=== PATIENT | female | born 1980 | race Caucasian/White ===

== ENCOUNTER 2021-02-26 10:31 | Emergency (ER) | payer OTHER, SELFPAY ==
--- NOTE | 2021-02-26 10:39 | ED.NECK ---
HPI - Neck Pain/Injury General Chief Complaint: Neck Pain/Injury Stated Complaint: neck pain Time Seen by Provider: 02/26/21 10:53 Source: patient and RN notes reviewed Mode of arrival: ambulatory Limitations: no limitations History of Present Illness HPI Narrative: 40-year-old female presents with concern for pain at the left-sided neck that starts at the base of the skull and radiates towards left shoulder. She reports some left arm achiness. She denies any injury or trauma. Reports she has been using heat with intermittent relief. Reports overall the pain has been worsening throughout the week. Reports a history of a similar incident like this several years ago however it did not last this long. Reports normal range of motion, pain with rotation to the left. Denies any weakness in any extremity or tingling in the digits. Denies rash, redness, bruising MD complaint: neck pain Related Data Home Medications Medication Instructions Recorded Confirmed Zyrtec 02/26/21 escitalopram oxalate mg 02/26/21 eszopiclone mg 02/26/21 montelukast mg 02/26/21 norethindrone-e.estradiol-iron tablet 02/26/21 [Aurovela Fe 1.5/30 (28)] Allergies Allergy/AdvReac Type Severity Reaction Status Date / Time shellfish derived Allergy Unknown Verified 08/15/16 11:58 Review of Systems Review of Systems: CONSTITUTIONAL: Denies malaise, chills, sweats, or fever. CARDIOVASCULAR: Denies chest pain, palpitations, or edema. RESPIRATORY: Denies cough or dyspnea. GASTROINTESTINAL: Denies abdominal pain, nausea, vomiting, diarrhea, bloody, or mucous stools. SKIN: Denies erythema, ecchymosis, rash or itching. MUSCULOSKELETAL: Reports left-sided neck pain that radiates to the left arm NEUROLOGIC: Denies numbness, weakness. Reports headache. All systems reviewed & are unremarkable except as noted in HPI and below [facility] Family History Family History (Updated 12/07/16 @ 10:28 by DOCTOR UNKNOWN) Father Asthma Family history of chronic obstructive pulmonary disease Mother Family history of cardiovascular disease Hypertension Social History Social History Smoking status: Never smoker Alcohol intake: never Comments At time of signature, agree with nursing past medical, surgical, social and family history. There is no relevant family history pertinent to the presenting complaint Exam Narrative: GENERAL: Well-appearing, well-nourished, and in no acute distress. HEAD: Normocephalic, atraumatic. EYES: PERRLA, sclera clear, and EOMI. No nystagmus. ENT: Mucous membranes moist. NECK: Supple. No lymphadenopathy. No cervical tenderness CHEST: No respiratory distress. Clear to auscultation. No bony deformities, no asymmetry. Speaks in full sentences. HEART: Regular rate and rhythm. No murmur heard. Normal peripheral pulses. EXTREMITIES: Bilateral upper extremities have grossly normal range of motion, no edema. Normal strength and sensation. SKIN: Warm, dry, no visible rash. NEURO: Alert and oriented x3. PSYCH: Normal mood and affect Course Course Emergency Course: Patient is aware of diagnosis, understands and agrees to treatment plan. Anticipatory guidance given. Patient agrees to follow-up as directed and is aware of reasons to seek care at the emergency department. Portions of this record may have been created with voice recognition software Vital Signs Vital signs: Reviewed. MDM - Neck Pain/Injury MDM Narrative Medical decision making narrative: Exam findings show no acute concerns or changes; patient is non-toxic appearing and is in no distress. Patient is appropriate for outpatient treatment and follow-up. Differential Diagnosis Differential diagnosis: Likely disc disorder of cervical region, cervical radiculopathy, torticollis, cervical spondylosis and strain of neck muscle Critical Care Time Critical Care Time Critical Care Time: No Discharge Plan Discharge Clinical Impression: Cervical radiculopathy
[2021-02-26 10:42] VITALS: BP 144/83; PULSE 102; RESP 16; TEMP 37.3; O2SAT 97
== END 2021-02-26 11:02 | disposition home or self-care (01) ==
PROVIDERS: Emergency Provider Nurse Practitioner; PCP Nurse Practitioner Family
DX: M54.12 Radiculopathy, cervical region (principal)
CPT/HCPCS: 99213; G0463

== ENCOUNTER → 2022-01-30 10:19 | Outpatient (CLI) | payer OTHER, SELFPAY ==
--- NOTE | ~2022-01-30 | MM_ITS ---
EXAMINATION: MM screening carol BI w braxton HISTORY: Screening mammogram TECHNIQUE: Craniocaudal and mediolateral oblique 3-D tomosynthesis images were obtained and synthetic 2-D images were generated. CAD analysis was submitted and interpreted. COMPARISON: No prior mammogram is available for comparison at this institution. BREAST PARENCHYMAL COMPOSITION: The breasts are extremely dense, which lowers the sensitivity of mamm ography. FINDINGS: There is no evidence of suspicious mass, calcification, or architectural distortion to sugg est malignancy in either breast. There has been no suspicious interval change. IMPRESSION: 1. No mammographic evidence of malignancy. 2. Recommend routine screening mammography in one year. BI-RADS Category 1: Negative Reviewed, dictated and finalized at location A.
== END ==
PROVIDERS: PCP Nurse Practitioner Family; Visit Provider Advanced Practice Midwife
DX: Z12.31 Encounter for screening mammogram for malignant neoplasm of breast (principal)
CPT/HCPCS: 77063; 77067

== ENCOUNTER → 2023-01-31 07:07 | Outpatient (CLI) | payer OTHER, SELFPAY ==
--- NOTE | ~2023-01-31 | MM_ITS ---
EXAMINATION: MM screening carol BI w braxton HISTORY: Screening mammogram TECHNIQUE: Craniocaudal and mediolateral oblique 3-D tomosynthesis images were obtained and synthetic 2-D images were generated. CAD analysis was submitted and interpreted. COMPARISON: 01/30/2022 bilateral screening mammogram BREAST PARENCHYMAL COMPOSITION: The breasts are extremely dense, which lowers the sensitivity of mamm ography. FINDINGS: There is no evidence of suspicious mass, calcification, or architectural distortion to sugg est malignancy in either breast. There has been no suspicious interval change. IMPRESSION: 1. No mammographic evidence of malignancy. 2. Recommend routine screening mammography in one year. BI-RADS Category 1: Negative Reviewed, dictated and finalized at location A.
== END ==
PROVIDERS: PCP Nurse Practitioner Family; Visit Provider Advanced Practice Midwife
DX: Z12.31 Encounter for screening mammogram for malignant neoplasm of breast (principal)
CPT/HCPCS: 77063; 77067

== ENCOUNTER 2024-01-31 07:21 | Outpatient (CLI) | payer OTHER, SELFPAY ==
--- NOTE | ~2024-01-31 | MM_ITS ---
EXAMINATION: MM screening carol BI w braxton HISTORY: Screening TECHNIQUE: Craniocaudal and mediolateral oblique 3-D tomosynthesis images were obtained and synthetic 2-D images were generated. CAD analysis was submitted and interpreted. COMPARISON: Comparison to multiple prior studies sequentially, with oldest reviewed study dated 01/30. BREAST PARENCHYMAL COMPOSITION: Dense: The breasts are extremely dense, which lowers the sensitivity of mammography. FINDINGS: There is no evidence of suspicious mass, calcification, or architectural distortion to sugg est malignancy in either breast. There has been no suspicious interval change. IMPRESSION: 1. No mammographic evidence of malignancy. 2. Recommend routine screening mammography in one year. BI-RADS Category 1: Negative Reviewed, dictated and finalized at location B.
== END 2024-01-31 07:22 | disposition home or self-care (01) ==
PROVIDERS: PCP Nurse Practitioner Family; Visit Provider Advanced Practice Midwife
DX: Z12.31 Encounter for screening mammogram for malignant neoplasm of breast (principal)
CPT/HCPCS: 77063; 77067

== ENCOUNTER 2024-08-24 21:27 | Emergency (ER) | payer OTHER, SELFPAY ==
--- NOTE | ~2024-08-24 | XR_ITS ---
Right ankle Technique: AP, oblique, and lateral views were obtained. Clinical History: Pain and swelling Findings: No acute fracture or dislocation is seen. Osseous alignment is anatomic. Ankle mortise and other visualized joint spaces are preserved. There is mild lateral soft tissue swelling. Impression: No fracture or dislocation. Mild lateral soft tissue swelling. Reviewed, dictated and finalized at [facility]. Impression: No fracture or dislocation. Mild lateral soft tissue swelling.
--- OUTSIDE RECORDS SUMMARY | 2024-08-24 21:30 | XMS_ITS | Referral Summary ---
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 Sleep Medicine at [address] [place] [address] Millie Flynn MD SARAH (obstructive sleep apnea) (Primary Dx); Hypersomnia; Obesity, unspecified class, unspecified obesity type, unspecified whether serious comorbidity present; Insomnia, unspecified type from Last 3 Months Allergies No known active allergies Medications escitalopram (LEXAPRO) 10 mg tablet Take 1 tablet (10 mg total) by mouth daily 11/19/2023 Active eszopiclone (LUNESTA) 3 mg tablet 3 MG ORALLY EVERY DAY AT BEDTIME 11/20/2023 Active topiramate (TOPAMAX) 25 mg tablet Take 1 tablet (25 mg total) by mouth 2 (two) times a day 11/19/2023 Active Ubrelvy 100 mg tablet 100 MG ORALLY ONCE A SINGLE DOSE MAY REPEAT ONCE IN >=2 HOURS AFTER FIRST DOSE IF NEEDED 11/20/2023 Active cetirizine (ZyrTEC) 5 mg tablet Take 1 tablet (5 mg total) by mouth daily Active calcium carbonate-vitam in D3 250 mg (100 mg elemental)-125 unit tablet 1 tablet Active cyanocobalamin (Vitamin B-12) 1,000 mcg/mL injection Active Aurovela Fe 1-20, 28, 1 mg-20 mcg (21)/75 mg (7) per tablet Take 1 tablet by mouth daily 11/19/2023 Active rosuvastatin (CRESTOR) 5 mg tablet Take 1 tablet (5 mg total) by mouth daily 02/01/2024 Active Active Problems Problem Noted Date Diagnosed Date SARAH (obstructive sleep apnea) 12/04/2023 Social History Tobacco Use Types Packs/Day Years Used Date Smoking Tobacco: Never Smokeless Tobacco: Never Tobacco Cessation:Counseling Given: Not Answered Comments Unknown Sex and Gender Information Value Date Recorded Sex Assigned at Not on file Legal Sex Female 11:30 AM CDT Gender Identity Not on file Sexual Orientation Not on file Last Filed Vital Signs Vital Sign Reading Time Taken Comments Blood Pressure 109/72 07/13/2024 9:55 AM CDT Pulse 87 07/13/2024 9:55 AM CDT Temperature - - Respiratory Rate - - Oxygen Saturation 97% 07/13/2024 9:55 AM CDT Inhaled Oxygen Concentration - - Weight 80.1 kg (176 lb 9.6 oz) 07/13/2024 9:55 A M CDT Height 162.6 cm (5' 4.02 ) 07/13/2024 9:55 AM CD T Body Mass Index 30.3 07/13/2024 9:55 AM CDT Plan of Treatment Not on file Insurance [facility] [employer] Care Teams Battery Filler Relationship Specialty Start Date End Date Krysta Rush NP PCP - General Nurse Practitioner 11/18/23
--- OUTSIDE RECORDS SUMMARY | 2024-08-24 21:30 | XMS_ITS | Data Portability ---
Author Organization [place] [facility], Main Office Address [address] [place] [address] Assessment No assessment recorded. Plan of Treatment Reminders Order Date Submit Date Provider Last Modified By Organization Details Last Modified Time Details Appointments None recorded. Lab None recorded. Referral wrapper stitcher referral - has been on zyrtec, flonase, montelukast . Not helping. Migraines 17 monthly. and not sleeping well. 2022 023 [email or web address] 7 Bradford Barber MD, [address] , [place], [address], 3 16:00:53 Procedures None recorded. Surgeries None recorded. Imaging home sleep study - please call pt to schedule 2022 023 [email or web address] 256 [facility] [place], [address] [place] [address], [address], 3 10:42:54 Medication Orders Ubrelvy 100 mg tablet 2022 023 [email or web address] [id number], [address] [place], [address], 3 10:36:05 topiramate 25 mg tablet 2022 023 LUIS DANIEL [id number], [address] [place], [address], 3 08:22:49 sumatriptan 100 mg tablet 2022 023 [id number], [address] [place], [address], 09:59:59 Patient TargetsNo targets recorded. Patient Instructions Encounter Date Encounter Id Patient Instructions Last Modified By Organization Details Last Modified Time 07/20/2022 [id number] fu in 4-6 weeks for migraine etdc Not available 07/20/2022 17:25:09 02/15/2023 [id number] Fu in 6 mo for insomnia, anxiety, sarah, migraine. Not available 02/15/2023 10:40:53 Reason for Referral Product Applications Engineer Referral for Seaso nal allergy has been on zyrtec, flonase, montelukast. Not helping. Migraines 17 monthly. and not sleeping well. Referring Physician: Krysta Rush, Family Medicine, Encounter Date: 07/20/2022 Results Created Date Observation Date Name Description Value Unit Range Abnormal Flag Note LastModifiedBy Organization Detail LastModifiedTime 01/31/20 22 01/30/2022 MAMMO , scree kate, bilat eral No observ ation record ed. [id number] [facility] [address], [place], [address], 07/04/2022 13:53:58 12/05/19 23 11/30/2022 home sleep study No observ ation record ed. [address] [facility] [place] [address] [place], [address], 12/18/2022 12:55:13 02/01/20 23 01/31/2023 MAMMO , scree kate, digit al, bilat eral No observ ation record ed. [email or web address] [facility] [address], [place], [address], 01/31/2023 14:53:04 02/08/20 23 12/04/2022 home sleep study No observ ation record ed. [address] [place], [address], 02/15/2023 10:59:08 09/01/31/2024 MAMMO , scree kate, bilat eral No observ ation record ed. [email or web address] [facility] [address], [place], [address], 02/05/2024 08:27:28 Result Notes None recorded. Problems Name Problem SNOMED Code Status Onset Date Resolution Date Notes Provider Name and Address Organization Details Recorded Time Insomnia 215468453 Active 2020 Not Available [facility] 3 13:52:14 Headache 36117473 Active 2020 Not Available [facility] 3 13:52:14 Bronchitis 88452929 Active 2021 Not Available [facility] 3 13:52:14 Strain of neck muscle 010356042 Active 2020 Not Available [facility] 3 13:52:14 Sinusitis 69830656 Active 2021 Not Available [facility] 3 13:52:14 Anxiety 12160035 Active 2020 Not Available [facility] 3 13:52:14 Cough 74924183 Active 2021 Not Available [facility] 3 13:52:14 Congestion of nasal sinus 68660925 Active 2020 Not Available [facility] 3 13:52:15 Seasonal allergy 544240408 Active 2022 Krysta Rush NP [address], [address], [place], [address] , [facility] 3 17:22:07 Sleep apnea 89531004 Active 2022 Krysta Rush NP [address], [address], [place], [address] , [employer] 3 17:22:44 Migraine 77302699 Active 2022 Krysta Rush NP [address], [address], [place], [address] , [employer] 3 17:23:13 Notes:Krysta Rush NP [facility] home sleep study 11/30/22, AHI = 11 Medical History: Anxiety Migraine headaches Rhinitis Mild OSAHS, AHI = 11, 11/30/22 Problem Notes None recorded. Procedures Surgical History Date Name Laterality Status Provider Name and Address Organization Details Recorded Time 2 Most Recent Mammogram completed Krysta Mohamud RN [facility] [employer] [facility] 07/20/2022 16:51:37 3 excision of bunion completed Krysta Mohamud RN [facility] [employer] [facility] 07/20/2022 16:50:58 6 delivery completed Not Available [facility] 07/04/2022 13:51:51 Imaging Results Imaging Date Name Status LastModified by Organiz ation Details LastModified Time 01/30/2022 MAMMO, screening, bilateral completed [id number] [facility] [address], [place], [address], 07/04/2022 13:53:58 11/30/2022 home sleep study completed [address] [facility] [address] [place], [address], 12/18/2022 12:55:13 01/31/2023 MAMMO, screening, digital, bilateral completed [email or web address] [facility] [address], [place], [address], 01/31/2023 14:53:04 12/04/2022 home sleep study completed [address] [place], [address], 02/15/2023 10:59:08 01/31/2024 MAMMO, screening, bilateral completed [email or web address] [facility] [address], [place], [address], 02/05/2024 08:27:28 Procedure Notes None recorded. Medical Equipment None Reported. Allergies No known drug allergies Medications Name Sig Start Date Stop Date Status Note LastModified by Organization Details LastModified Time benzap rine 10 mg tablet TAKE 1 TABLET BY MOUTH THREE TIMES DAILY NEEDED FOR MUSCLE SPASM 07/20 completed Not Available Not Available Not Available ibuprofen 800 mg tablet 08/24 completed Not Available Not Available Not Available fluconazole 150 mg tablet TAKE 1 TABLET BY MOUTH ONCE FOR 1 DAY 12/07 completed Not Available Not Available Not Available benzonatate 200 mg capsule Take 1 capsule every 8 hours by oral route as needed for 5 days. 07/20 completed Not Available Not Available Not Available sumatriptan 100 mg tablet TAKE 1 TABLET BY MOUTH NEEDED, MAY REPEAT IN 2 HOURS IF SYMPTOMS PERSIST (MAX 200 MG/24 HOURS) 02/15 completed Not Available Not Available Not Available prednisone 20 mg tablet TAKE 2 TABLETS BY MOUTH DAILY FOR 5 DAYS 05/16 completed Not Available Not Available Not Available topiramate 25 mg tablet TAKE 1 TABLET BY MOUTH TWICE A DAY active Not Available Not Available No t Available metronidazo le 500 mg tablet TAKE 1 TABLET BY MOUTH TWICE DAILY FOR 7 DAYS 12/07 completed Not Available Not Available Not Available ciprofloxac in 500 mg tablet TK 1 T PO Q 12 H 07/27 completed Not Available Not Available Not Available sulfamethox azole 800 mg-trimetho prim 160 mg tablet Take 1 tablet every 12 hours by oral route for 7 days. 05/16 completed Not Available Not Available Not Available famotidine 20 mg tablet TK 1 T PO D 07/27 completed Not Available Not Available Not Available dicyclomine 20 mg tablet TK 1 T PO TID 07/27 completed Not Available Not Available Not Available rizatriptan 10 mg disintegrat ing tablet TAKE 1 TABLET EVERY DAY BY ORAL ROUTE NEEDED. 02/15 completed Not Available Not Available Not Available nortriptyli ne 10 mg capsule TK 2 CS PO QD AT DINNERTIM E 07/27 completed Not Available Not Available Not Available montelukast 10 mg tablet TAKE 1 TABLET BY MOUTH EVERY DAY 02/15 completed Not Available Not Available Not Available methylpredn isolone 4 mg tablets in a dose pack TAKE 6 TABLETS ON DAY 1 DIRECTED ON PACKAGE AND DECREASE BY 1 TAB EACH DAY FOR A TOTAL OF 6 DAYS 07/20 completed Not Available Not Available Not Available fluticasone propionate 50 mcg/actuati on nasal spray,suspe nsion Coolin 2 sprays every day by intranasa l route as directed for 30 days. active Not Available Not Available No t Available nortriptyli ne 50 mg capsule TK 1 C PO QHS 07/27 completed Not Available Not Available Not Available amoxicillin 875 mg-potassiu m clavulanate 125 mg tablet TAKE 1 TABLET BY MOUTH EVERY 12 HOURS FOR 7 DAYS 07/20 completed Not Available Not Available Not Available amoxicillin 500 mg-potassiu m clavulanate 125 mg tablet TK 1 T PO Q 12 H 07/27 completed Not Available Not Available Not Available escitalopra m 10 mg tablet TAKE 1 TABLET BY MOUTH EVERY DAY 2023 active Not Available Not Available Not Avai lable .10/02 (21) 1.5 mg-30 mcg tablet TAKE 1 TABLET BY MOUTH EVERY DAY 02/15 completed Not Available Not Available Not Available FE .10/02 (28) 1.5 mg-30 mcg (21)/75 mg (7) tablet TAKE 1 TABLET BY MOUTH EVERY DAY 12/15 completed Not Available Not Available Not Available escitalopra m 5 mg tablet TK 1 T PO QD 07/27 completed Not Available Not Available Not Available nitrofurant oin monohydrate /macrocryst als 100 mg capsule TAKE 1 CAPSULE BY MOUTH EVERY 12 HOURS 12/07 completed Not Available Not Available Not Available eszopiclone 3 mg tablet TAKE 1 TABLET BY MOUTH EVERY DAY as needed only 2023 active Not Available Not Available Not Avai lable eszopiclone 2 mg tablet TAKE 1 TABLET BY MOUTH EVERY NIGHT 07/27 completed Not Available Not Available Not Available Blisovi 24 Fe 1 mg-20 mcg (24)/75 mg (4) tablet TAKE 1 TABLET BY MOUTH EVERY DAY active Not Available Not Available No t Available Ubrelvy 100 mg tablet active Not Available Not Available No t Available Vitals Date Recorded Body mass index (BMI) Body height Oxygen saturation Oxygen saturation in Arterial blood by Pulse oximetry Heart rate Respiratory rate Body temperature Body weight Systolic blood pressure Diastolic blood pressure Provider Name and Address Organization Details Last Updated DateTime 2 29.4 kg/m2 162.56 cm 98 % 98 % 90 /min 16 /min 98.2 [degF] 26774.3 g 122 mm[Hg] 74 mm[Hg] Not Available [facility] 3 13:51:58 Date Recorded Body height Body mass index (BMI) Body weight Body temperature Heart rate Respiratory rate Oxygen saturation Oxygen saturation in Arterial blood by Pulse oximetry Systolic blood pressure Diastolic blood pressure Provider Name and Address Organization Details Last Updated DateTime 3 162.56 cm 29.6 kg/m2 69991.0 4 g 96.1 [degF] 85 /min 20 /min 98 % 98 % 130 mm[Hg] 84 mm[Hg] Krysta Mohamud RN [facility] 3 16:47:23 Date Recorded Body height Body mass index (BMI) Body weight Body temperature Heart rate Respiratory rate Oxygen saturation Oxygen saturation in Arterial blood by Pulse oximetry Pain severity - 0-10 verbal numeric rating [Score] - Reported Systolic blood pressure Diastolic blood pressure Provider Name and Address Organization Details Last Updated DateTime 3 162.56 cm 29.9 kg/m2 30104.7 7 g 97.7 [degF] 95 /min 16 /min 98 % 98 % 0 114 mm[Hg] 72 mm[Hg] Krysta Mohamud RN [facility] 3 08:02:06 Date Recorded Body height Body mass index (BMI) Body weight Body temperature Heart rate Respiratory rate Oxygen saturation Oxygen saturation in Arterial blood by Pulse oximetry Pain severity - 0-10 verbal numeric rating [Score] - Reported Systolic blood pressure Diastolic blood pressure Provider Name and Address Organization Details Last Updated DateTime 3 162.56 cm 28.4 kg/m2 02166.8 4 g 96.6 [degF] 88 /min 16 /min 97 % 97 % 0 134 mm[Hg] 80 mm[Hg] Krysta Mohamud RN [facility] 3 10:02:02 Social History Question Answer Notes LastModified by Organization Details LastModified Time Tobacco Smoking Status Never Smoker Not Available [facility] 07/04/2022 13:51:50 Do You Have An Advance Directive? No Information not available 07/20/2022 What Is Your Level Of Alcohol Consumption? None [id number] Information not available 07/04/2022 Is Blood Transfusion Acceptable In An Emergency? Yes Information not available 07/20/2022 What Is Your Level Of Caffeine Consumption? None Information not available 02/15/2023 What Is Your Code Status? Full Code Information not available 07/20/2022 In The 14 Days Before Symptom Onset, Have You Had Close Contact With A Laboratory-confi rmed COVID-19 While That Case Was Ill? No [id number] Information not available 07/04/2022 In The 14 Days Before Symptom Onset, Have You Had Close Contact With A Person Who Is Under Investigation For COVID-19 While That Person Was Ill? No [id number] Information not available 07/04/2022 Are You Currently Employed? Yes Information not available 07/20/2022 What Type Of Diet Are You Following? REGULAR [id number].[id number] [id number] Information not available 07/04/2022 Do You Or Have You Ever Used E-cigarettes Or Vape? Never Used Electronic Cigarettes [id number] Information not available 07/04/2022 What Is The Highest Grade Or Level Of School You Have Completed Or The Highest Degree You Have Received? 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 Information not available 02/15/2023 How Many Days Of Moderate To Strenuous Exercise, Like A Brisk Walk, Did You Do In The Last 7 Days? 4 Information not available 07/20/2022 On Those Days That You Engage In Moderate To Strenuous Exercise, How Many Minutes, On Average, Do You Exercise? 25 Information not available 07/20/2022 Have There Been Any Changes To Your Family Or Social Situation? No Information not available 07/20/2022 Do You Use Insect Repellent Routinely? Yes Information not available 07/20/2022 Where Do You Live? SingleLevelHouse Information not available 07/20/2022 Do You Have A Medical Power Of Activity Coordinator? No Information not available 07/20/2022 How Many Children Do You Have? 4 Information not available 07/20/2022 Do You Have Any Pets? Yes Information not available 07/20/2022 What Is Your Relationship Status? Information not available 07/20/2022 Do You Use Your Seat Belt Or Car Seat Routinely? Yes Information not available 07/20/2022 Are You Sexually Active? No Information not available 07/20/2022 Do You Have Smoke And Carbon Monoxide Detectors In Your Home? Yes Information not available 07/20/2022 Are You Passively Exposed To Smoke? Yes Information not available 07/20/2022 Do You Or Have You Ever Used Smokeless Tobacco? Never Used Smokeless Tobacco [id number].[id number] [id number] Information not available 07/04/2022 Are There Any Smokers In Your House? Yes Information not available 07/20/2022 Do You Participate In Social Media? Yes Information not available 07/20/2022 Do You Feel Stressed (tense, Restless, Nervous, Or Anxious, Or Unable To Sleep At Night)? [id number] Information not available 07/20/2022 Do You Use Any Illicit Or Recreational Drugs? No Information not available 07/20/2022 Do You Use Sunscreen Routinely? Yes Information not available 07/20/2022 Have You Recently Traveled Abroad? No Information not available 07/20/2022 Sex: Unknown Functional Status Question Answer Note LastModified by Organizat ion Details LastModified Time What is your exercise level? Occasional Information not available 07/20/2022 Mental Status None recorded. Family History Relationship Description Onset Age of this Age Resolved Age Notes LastModified by Organization Details LastModified Time Mother Hypertensive heart disease [id number] Not available 07/04/2022 13:51:52 Medical History Condition Response HEADACHES/MIGRAINES Y ALLERGIES/HAYFEVER Y DEPRESSION (INCLUDING POST ) Y Gynecological History Statement/Question Response Date of LMP STIs/STDs N Current Control Method BCPs Most Recent Mammogram 01/04/2022 Breast Problems none How many live births 1 Date of Last Mammogram 01/31/2023 Date of Last Colonoscopy Most Recent Bone Density Sexually Active? N Date of Last Pap Smear Discharge none Obstetrics History GPAL:G 1 P 0 0 0 0 Immunizations Vaccine Type Date Status Note Provider Nam e and Address Organization Details Recorded Time Influenza, split virus, quadrivalent, PF 3 completed Krysta Mohamud RN [facility], [place] [facility] [employer] [facility] 02/15/2023 10:58:12 Influenza, split virus, quadrivalent, preservative 1 completed Not Available [facility] 07/04/2022 13:53:54 SARS-COV-2 (COVID-19) vaccine, UNSPECIFIED 1 completed Not Available [facility] 07/04/2022 13:53:54 SARS-COV-2 (COVID-19) vaccine, UNSPECIFIED 1 completed Not Available [facility] 07/04/2022 13:53:54 Past Encounters Encounter ID Performer Location Encounter Start Date Encounter Closed Date Diagnosis/Indication Diagnosis SNOMED-CT Code Diagnosis ICD10 Code Diagnosis Note [id number] [address] [address] 07/27/2020 00:00:00 07/27/2020 08:40:[id number] [address] 11/01/2020 00:00:00 11/01/2020 09:03:[id number] [address] 02/15/2021 00:00:00 02/15/2021 17:02:[id number] [address] 03/02/2021 00:00:00 03/02/2021 11:00:[id number] [address] 05/16/2021 00:00:00 05/16/2021 08:28:[id number] [address] 12/15/2021 00:00:00 12/15/2021 16:08:[id number] [address] 01/16/2022 00:00:00 01/16/2022 15:36:02 [id number] Krysta Rush NP [address] [address] 07/20/2022 16:34:45 07/20/2022 17:28:05 Seasonal allergy 443336221 J30.2 referring to wrapper stitcher. Sleep apnea 24590351 G47 .30 home sleep study ordered. Migraine 17898005 G43.90 9 Sumatripta n 100 mg po prn migraine. Fu in 4-6 weeks. [id number] Krysta Rush NP [address] [address] 08/24/2022 07:54:46 08/24/2022 08:27:43 Migraine 11304221 G43.909 Sumatripta n 100 mg po prn migraine not working well. DC.Would like to be on different med. Sample of ubrelvy, ozzy givenTopir amate 25 mg po bid, wean from 1 tab po daily x 1 week to 1 tab po bid.FU in 4-6 weeks. Dry eyes, but exam routine. [id number] Krysta Rush NP [address] [address] 02/15/2023 09:41:08 02/15/2023 10:44:59 Migraine 70025175 G43.909 Sumatripta n 100 mg po prn migraine not working well. DC.Ubrelvy with [employer] card working well.Topir amate 25 mg po bid, wean from 1 tab po daily x 1 week to 1 tab po bid. Insomnia 083085304 G47.0 0 Using eszopiclon e. Did have sleep study with mild SARAH. Needing pap titration study. Seasonal allergy 0279761 04 J30.2 Seeing allergies- 'not allergic to anything'. Zyrtec and flonase. Anxiety 11547979 F41.9 Escitalopr am 10 mg po daily. Administra tion of influenza vaccine 53033776 Z23 Health Concerns Section Related Observation LastModified by Organization Detai ls LastModified Time None Recorded Concern Status LastModified by Organization Details LastModified Time None Recorded Advance Directives Directive N: Payers Encounter Date Sequence Insurance Name Policy Number Policy Malhotra Covered Member ID Malhotra Member ID Guarantor Name 07/20/2022 1 [facility] [id number] Annmarie Braden Arrington [id number] Annmarie L Murphy 08/24/2022 1 [facility] [id number] Annmarie Braden Murphy [id number] Annmarie L Timberon 02/15/2023 1 [facility] [id number] Annmarie Braden Arrington [id number] Annmarie Arrington Notes Date Note Type Note Provider Name and Address Organization Details Recorded Time 07/20/2022 text/html Pt. here for 4 month follow up on allergies, anxiety, BAZAN, insomnia, neck pain. Allergies - allergies have been the worst; she has a runny nose and sniffles; she's taking Zyrtec, Flonase, and Singulair. Pt. has a shedding dog, and her smokes. Pt. has never been to an wrapper stitcher; she is interested in wrapper stitcher referral. Anxiety - taking Lexapro 10 mg; she's stable on this med; a bit stressed due to son just getting his route sales delivery drivers supervisor's license. BAZAN - she has been having frequent headaches - almost daily; pain is usually only on right side; she lays down and takes Excedrin; this helps. She averages 15 headache days/month. Insomnia - pt. states sleep is usually ok, but she is still tired during the day; feels tired all the time; has no energy; she's taking Lunesta for her sleep but can't stay asleep; she takes the Lunesta around 8 pm and still wakes up at 3 or 4 am. Pt. states says she snores; dentist suggested she get a sleep study; also may be grinding her teeth. Krysta Rush NP [address] [facility], [address], [place], [address], [employer] 07/20/2022 17:25:23 08/24/2022 text/html Here for discussion about headaches. Having headache every few days. Breaks ever 2 days. Then restarts. Has taken excedrin few times since last visit. Has used 27 sumatriptan 100 mg. Few times had to use 2 tabs and excedrin. Doesn't feel it's working effectively. Migraines takes the energy out of her and feels drained.Eating well and staying hydrated with water.Sleeping is ok as long as on eszopiclone. Krysta Rush NP [address] [facility], [address], [place], [address], [employer] 08/24/2022 08:24:40 02/15/2023 text/html Here for FU on migraine, allergies, insomnia, sleep study. Migraine- Improving. Has been on topiramate bid. Ubrelvy is not covered on insurance. Using [employer] card to get #16. Ubrelvy has been helping and controlling breakthrough.Insom syd- sleep study- needing to have PAP study done. Pt to schedule with Dr. Arevalo for PAP titration.Allergie s- Stable. Flares with weather change. Has seen wrapper stitcher and not allergic to anything. On flonase and zyrtec. No singulair, wasn't helping.anxiety- Stable. Krysta Rush NP [address] [facility], [address], [place], [address], [employer] 02/15/2023 10:44:27 OBGyn Episode No OBEpisode recorded.
--- OUTSIDE RECORDS SUMMARY | 2024-08-24 21:30 | XMS_ITS | Clinical Summary ---
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 Role Phone Krysta Rush [employer] Primary Care Provider + Allergies No known active allergies Medications escitalopram [...] Diagnosed Date SARAH (obstructive sleep apnea) 12/04/2023 Encounters Date Type Department Care Team Description 07/13/2024 10:00 AM CDT Office Visit [facility] at [address] [place] [address] Millie Flynn MD SARAH (obstructive sleep apnea) (Primary Dx); Hypersomnia; Obesity, unspecified class, unspecified obesity type, unspecified whether serious comorbidity present; Insomnia, unspecified type from Last 3 Months Surgical History Surgery Date Site/Laterality Comments SECTION 05/06/2005 - 05/05/2006 Medical History Medical History Date Comments Migraine Anxiety Social History Tobacco Use Types Packs/Day Years Used Date Smoking Tobacco: Never Smokeless Tobacco: Never Tobacco Cessation:Counseling Given: Not Answered Comments Unknown Sex and Gender Information Value Date Recorded Sex Assigned at Not on file Legal Sex Female 11:30 AM CDT Gender Identity Not on file Sexual Orientation Not on file Obstetrics History Last Filed Vital Signs Vital Sign Reading [...] 07/13/2024 9:55 AM CDT Plan of Treatment Health Maintenance Due Date Last Done Comments Cervical Cancer Screening 1981 Depression Screening 1981 Hepatitis C Screening 1981 Varicella Vaccines (1 of 2 - 13+ 2-dose series) 1994 Hepatitis B Screening 09/22/1999 Regular Well Visit/Exam 18-64 09/22/1999 DTaP/Tdap/Td Vaccine (2 - Td or Tdap) 05/07/2021 05/07/2011 Covid-19 Vaccine ( season) 2024 06/24/2021, 09/13/2020, 08/21/2020 Influenza Vaccine (Season Ended) 2025 02/15/2023, 02/12/2021, 02/11/2021, Additional history exists Breast Cancer Screening-Mammogram 01/30/2025 01/31/2024, 01/30/2022 HPV Vaccines Aged Out No longer eligi ble based on patient's age to complete this topic Pneumococcal vaccine <65 Aged Out No longer eligible based on patient's age to complete this topic Insurance [facility]PPO Address: [place] [address] Care Teams 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
--- OUTSIDE RECORDS SUMMARY | 2024-08-24 21:31 | XMS_ITS | Data Portability ---
Author Organization [facility] [place] Address [address] [place] [address] Assessment Encounter Date Assessment Date Assessment LastModified by Organization Details LastModified Time 07/01/2020 07/01/2020 Annual gynecological exam performed. Patient will come back in a year unless there are new symptoms. Suggest Calcium with Vitamin D if not eating in diet. Patient advised to get annual flu shot. Recommend yearly physicals and preform monthly breast exams. Genetic testing is available for patients with family history of cancer. Engage in safe sexual practices, use condoms. Encouraged to have daily exercise. Avoid tobacco and illicit drugs, moderation of alcohol. If BMI greater than 25 dietary consult advised. If you have any questions please call or email. Additional precautionary measures were taken to minimize potential exposure to the Covid-19 virus during this patient s visit, including available hand assessment rn upon arrive, temperature check and being asked a series of screening questions. All staff wore face coverings during this encounter, as well as provided additional cleaning and sanitizing of all surfaces, including countertops, pens, chairs, door handles, light switches, etc, prior to and following the patient s visit. [email or web address] Not available 07/01/2020 10:29:36 07/26/2021 07/26/2021 Annual gynecological exam performed. Patient will come back in a year unless there are new symptoms. Suggest Calcium with Vitamin D if not eating in diet. Patient advised to get annual flu shot. Recommend yearly physicals and preform monthly breast exams. Genetic testing is available for patients with family history of cancer. Engage in safe sexual practices, use condoms. Encouraged to have daily exercise. Avoid tobacco and illicit drugs, moderation of alcohol. If BMI greater than 25 dietary consult advised. If you have any questions please call or email. [email or web address] Not available 07/26/2021 11:24:23 08/17/2022 08/17/2022 Annual gynecological exam performed. Patient will come back in a year unless there are new symptoms. Suggest Calcium with Vitamin D if not eating in diet. Patient advised to get annual flu shot. Recommend yearly physicals and preform monthly breast exams. Genetic testing is available for patients with family history of cancer. Engage in safe sexual practices, use condoms. Encouraged to have daily exercise. Avoid tobacco and illicit drugs, moderation of alcohol. If BMI greater than 25 dietary consult advised. If you have any questions please call or email. mammogram order given Not available 08/17/2022 09:53:40 08/30/2023 08/30/2023 Annual gynecological exam performed. Patient will come back in a year unless there are new symptoms. [email or web address] Not available 08/30/2023 11:00:47 Plan of Treatment Reminders Order Date Submit Date Provider Last Modified By Organization Details Last Modified Time Details Appointments [facility] 2024 03:00P M JR PINTO NP Not available Not available Not available Lab urinalysi s, dipstick 2021 022 [facility] [facility] [address], [place], [address], 09/18/2021 11:30:03 Referral None recorded. Procedures None recorded. Surgeries None recorded. Imaging None recorded. Medication Orders Flagyl 500 mg tablet 2023 024 [facility]acy #[id number], [address] [place], [address], 08/30/2023 11:25:58 Blisovi Fe 1/20 (28) 1 mg-20 mcg (21)/75 mg (7) tablet 2023 024 [facility]/Pharmacy #[id number], [address] [place], [address], 08/30/2023 11:31:29 Connie 24 Fe 1 mg-20 mcg (24)/75 mg (4) tablet 2022 023 [facility]/Pharmacy #[id number], [address] [facility], [place], [address], 08/17/2022 09:53:57 Macrobid 100 mg capsule [address] [id number], [address], [place], [place], [id number], 08/17/2022 09:45:22 Diflucan 150 mg tablet [address] [id number], [address], [place], [place], [id number], 08/17/2022 09:45:03 Aurovela 1.5/30 (21) 1.5 mg-30 mcg tablet [address] [facility][id number], [address], [place], [place], [id number], 08/30/2023 11:01:45 Aurovela Fe 1.5/30 (28) 1.5 mg-30 mcg (21)/75 mg (7) tablet [address] [id number], [address], [place], [id number], 08/17/2022 09:45:12 Patient TargetsNo targets recorded. Patient InstructionsNo instructions recorded. Reason for Referral None Reported. Results Created Date Observation Date Name Description Value Unit Range Abnormal Flag Note LastModifiedBy Organization Detail LastModifiedTime 09/19/1909/18/2021 VAGIN ITIS/ VAGIN OSIS, DNA PROBE luna sp. detection, direct probe Positi ve negati ve abnormal Not Available [facility] (Lab) [address], [place], [address], 09/19/2021 21:29:43 09/19/19 22 09/18/2021 VAGIN ITIS/ VAGIN OSIS, DNA PROBE gardnerella vag. detection, direct probe Positi ve negati ve abnormal Not Available [facility] (Lab) [address] [place], [address], 09/19/2021 21:29:43 09/19/19 22 09/18/2021 VAGIN ITIS/ VAGIN OSIS, DNA PROBE trichomonas vag. detection, direct probe Negati ve negati ve Not Available [facility] (Lab) [address], [place], [address], 09/19/2021 21:29:43 09/19/19 22 09/18/2021 CULTU RE: URINE result report SEE RESULT S BELOW Test: Cultu re: Urine Speci men Sourc e: Urine Voide d Speci men Type: Urine Speci men Date: 2021 4:35 PM Resul t Date: 2021 10:09 PM Resul t Statu s: Final resul t Abnor mal: No Resul ting Lab: [facility] [address] [facility] [address] Tel: CULTU RE ----- ----- ----- --- No growt h in 1 day (dete ction level of 10,00 0 colon ies / ml.) Not Available [facility] (Lab) [address], [place], [address], 09/19/2021 23:12:27 09/19/19 22 09/18/2021 urina lysis , dipst ick Leukocytes +2 Not Available [facility] [address], [place], [address], 09/18/2021 11:23:52 09/19/19 22 09/18/2021 urina lysis , dipst ick Nitrite NORMAL Not Available [place] [address], [place], [address], 09/18/2021 11:23:52 09/19/19 22 09/18/2021 urina lysis , dipst ick Urobilinogen NORMAL Not Available [facility] juan daniel [address], [place], [address], 09/18/2021 11:23:52 09/19/19 22 09/18/2021 urina lysis , dipst ick Protein TRACE Not Available [place] [address], [place], [address], 09/18/2021 11:23:52 09/19/19 22 09/18/2021 urina lysis , dipst ick pH 8 Not Available [place] [address], [place], [address], 09/18/2021 11:23:52 09/19/19 22 09/18/2021 urina lysis , dipst ick Specific [place] 1.005 Not Available [facility] [address], [place], [address], 09/18/2021 11:23:52 09/19/19 22 09/18/2021 urina lysis , dipst ick Ketone NORMAL Not Available [place] [address], [place], [address], 09/18/2021 11:23:52 09/19/19 22 09/18/2021 urina lysis , dipst ick Bilirubin NORMAL Not Available Keshav hand [address], [place], [address], 09/18/2021 11:23:52 09/19/19 22 09/18/2021 urina lysis , dipst ick Glucose NORMAL Not Available [place] [address], [place], [address], 09/18/2021 11:23:52 09/19/19 22 09/18/2021 urina lysis , dipst ick Appearance NORMAL Not Available Lavelle resendez [address], [place], [address], 09/18/2021 11:23:52 09/19/19 22 09/18/2021 urina lysis , dipst ick Color NORMAL Not Available [place] [address], [place], [address], 09/18/2021 11:23:52 08/30/19 24 08/30/2023 VAGIN ITIS/ VAGIN OSIS, DNA PROBE luna sp. detection, direct probe Negati ve negati ve Not Available [facility] (Lab) [address], [place], [address], 09/05/2023 20:58:20 08/30/19 24 08/30/2023 VAGIN ITIS/ VAGIN OSIS, DNA PROBE gardnerella vag. detection, direct probe Negati ve negati ve Not Available [facility] (Lab) [address], [place], [address], 09/05/2023 20:58:20 08/30/19 24 08/30/2023 VAGIN ITIS/ VAGIN OSIS, DNA PROBE trichomonas vag. detection, direct probe Negati ve negati ve Not Available [facility] (Lab) [address], [place], [address], 09/05/2023 20:58:20 08/30/19 24 08/30/2023 IMAGE GUIDE D PAP AND HPV REGAR DLESS image guided Pap, HPV regardless of Pap result SEE RESULT S BELOW CASE REPOR T: Cytol ogy Gynec ologi fabrice Repor t Case: [id number] Autho berenice g Provi laya: Radha Sanford NP Colle cted: 08/29 1518 Order ing Locat ion: [place] [facility] Recei tamera: 09/01 0711 First Scree n: DeLuc a, Rachel, CT Rescr een: Andreia Carvajal Speci men: Scree kate Pap - Image d, Cervi x STATE MENT OF ADEQU ACY: Satis facto ry for evalu ation Trans forma tion zone compo nent absen t The absen ce of an endoc ervic al compo nent was confi rmed by an addit kleber ruiz. FINAL DIAGN OSIS: Negat bassam for Intra epith elial Lesio n or Cara caevedo (NIL) . Elect lewis horne d by Adnreia Carvajal on 024 at 7:54 PM ----- ----- ----- ----- ----- ----- ----- ----- ----- ----- ----- ----- ----- ----- ----- ----- ----- ---- HPV RESUL TS: HPV mRNA E6/E7 : No HPV mRNA Detec black NOTE: This high risk HPV mRNA assay detec ts fourt een high- risk HPV types (16, 18, 31, 33, 35, 39, 45, 51, 52, 56, 58, 59, 66, 68) witho ut diffe renti ation . COMME NT: This speci men was revie wed by a Cytot echno logis t and/o r Patho logis t (as indic ated in this repor t) after evalu ation using the Thinp rep Imagi ng Syste m. CLINI FABRICE INFOR MATIO N: Menst rual Statu s: LMP (if appli cable ): Clini fabrice Histo ry/Pr eviou s Pap: Type of Neopl deena (if appli cable ): Signi fican t Clini fabrice Findi ngs: Other Histo ry: Hormo isac (if appli cable ): PAP EDUCA LORETA L NOTE: The Pap Test is a scree kate test with an inher ent false negat bassam rate. Liqui d-bas ed sampl ing may decre ase, but will not elimi corrine, false negat bassam resul ts. A negat bassam resul t does not precl ude the prese nce and/o r devel opmen t of disea se, since the prese nce of abnor mal cells in the sampl e depen ds on the locat ion of the lesio n and sampl ing techn ique. Mary nued regul ar scree kate is the best metho d of cance r preve ntion . If repor black cytol ogic findi ng do not corre late with physi fabrice and/o r histo rical findi ngs, furth er inves tigat ion is recom namrata d, as clini andreina marti nted. Not Available [facility] (Lab) [address], [place], [address], 09/05/2023 20:58:20 01/31/20 22 01/30/2022 MAMMO , scree kate, bilat eral No observ ation record ed. [facility] [address], [place], [address], 01/30/2022 22:02:34 02/01/20 23 01/31/2023 MAMMO , scree kate, bilat eral No observ ation record ed. [facility] [address], [place], [address], 01/31/2023 19:14:49 01/31/20 24 01/31/2024 MAMMO , scree kate, digit al, bilat eral No observ ation record ed. [facility] [address], [place], [address], 01/31/2024 12:40:21 Result Notes None recorded. 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 09:40:22 Screenin g for malignan t neoplasm of cervix Completed 201407/01/2020 Pap Smear;Pr actice ID: [id number] Amber Clark viet, [facility] 09:40:[address] Concept Completed 201907/01/2020 Encntr for routine child health exam w/o abnormal findings ;Recorde d Elsewher e: No Locat ion: [facility] S ource: [employer] [employer] seda: N Lissethti ce ID: [id number] Jovanny lable Time: 02:45:00 PM Amber Clark viet [facility] 09:40:20 Pregnanc y test negative [id number] Completed 201407/01/2020 Pregnanc y examinat ion or test, negative result;R ecorded Elsewher e: No Locat ion: [facility] S ource: [facility] [employer] seda: N Practi ce ID: [id number] Jovanny lable Time: 11:00:00 AM Amber Clark viet [facility] 09:40:16 Menstrua tion finding Completed 201407/01/2020 Excessiv e or frequent menstrua tion;Rec orded Elsewher e: No Locat ion: [facility] S ource: [facility] [employer] esda: N Lissethti ce ID: [id number] Jovanny lable Time: 10:30:00 AM Amber llanos [facility] 09:40:14 Irregula r intermen strual bleeding [id number] Completed 201407/01/2020 Metrorrh agia;Pra ctice ID: [id number] Amber Clark viet [facility] 09:40:12 Adult health examinat ion Completed 201407/01/2020 Routine general medical examinat ion at a health care facility ;Practic e ID: 0001 Amber llanos [facility] 09:40:08 Speciali zed medical examinat ion Completed 201407/01/2020 Routine gynecolo gical examinat ion;Prac reny ID: 0001 Amberkaylen Clark [facility] 1 09:40:24 Finding of general energy [id number] Completed 201507/01/2020 Fatigue; Recorded Elsewher e: No [facility] S ource: [facility] [employer] seda: N Practi ce ID: 0001 Jovanny lable Time: 03:15:00 PM Amber Clark [facility] 1 09:40:10 Migraine 70287081 Active 2023 Amber Clark [facility] 4 11:02:12 Mixed anxiety and depressi ve disorder 983350602 Active 2023 Amber Clark [facility] 4 11:02:27 Problem Notes None recorded. Procedures Surgical History Date Name Laterality Status Provider Name and Address Organization Details Recorded Time 4 Date of Last Pap Smear completed [facility] 08/30/2023 11:02:38 3 extraction of wisdom tooth completed [facility] 08/30/2023 11:03:29 1 excision of bunion completed [facility] 06/27/2020 17:12:53 0 extraction of wisdom tooth completed [facility] 08/30/2023 11:03:25 0 excision of bunion completed [facility] 06/27/2020 17:12:56 6 section completed [facility] 06/27/2020 17:12:18 Imaging Results Imaging Date Name Status LastModified by [facility] Details LastModified Time 01/30/2022 MAMMO, screening, bilateral completed [facility] [address], [place], [address], 01/30/2022 22:02:34 01/31/2023 MAMMO, screening, bilateral completed [facility] [address], [place], [address], 01/31/2023 19:14:49 01/31/2024 MAMMO, screening, digital, bilateral completed [facility] [address], [place], [address], 01/31/2024 12:40:21 Procedure Notes None recorded. Medical Equipment None Reported. Allergies No known drug allergies Medications Name Sig Start Date Stop Date Status Note LastModified by Organization Details LastModified Time cyclobenz aprine 10 mg tablet TAKE 1 TABLET BY MOUTH THREE TIMES DAILY NEEDED FOR MUSCLE SPASM 07/26 completed Not Available Not Available Not Available ibuprofen 800 mg tablet 08/17 completed Not Available Not Available Not Available fluconazo le 150 mg tablet TAKE 1 TABLET BY MOUTH ONCE FOR 1 DAY 08/17 completed Not Available Not Available Not Available benzonata te 200 mg capsule TAKE 1 CAPSULE EVERY 8 HOURS BY ORAL ROUTE NEEDED FOR 5 DAYS. 08/17 completed Not Available Not Available Not Available sumatript an 100 mg tablet TAKE 1 TABLET BY MOUTH NEEDED, MAY REPEAT IN 2 HOURS IF SYMPTOMS PERSIST (MAX 200 MG/24 HOURS) 08/29 completed Not Available Not Available Not Available Claritin 10 mg tablet take 1 tablet by oral route every day 06/27 completed Prescrib modesta Mckeon e: Yes Loca tion: Keshav [facility]ie odify By: [email or web address] trick En counter DateTime : 11/17/19 15 10:30:00 AM Not Available Not Available Not Available prednison e 20 mg tablet TAKE 2 TABLETS BY MOUTH DAILY FOR 5 DAYS 07/26 completed Not Available Not Available Not Available topiramat e 25 mg tablet TAKE 1 TABLET BY MOUTH TWICE A DAY active Not Available Not Available No t Available Zyrtec 10 mg tablet active Not Available Not Available No t Available metronida zole 500 mg tablet TAKE 1 TABLET BY MOUTH EVERY 12 HOURS active Not Available Not Available No t Available sulfameth oxazole 800 mg-trimet hoprim 160 mg tablet TAKE 1 TABLET BY MOUTH EVERY 12 HOURS FOR 7 DAYS 07/26 completed Not Available Not Available Not Available rizatript an 10 mg disintegr ating tablet 08/29 completed Not Available Not Available Not Available monteluka st 10 mg tablet TAKE 1 TABLET BY MOUTH EVERY DAY 08/29 completed Not Available Not Available Not Available methylpre dnisolone 4 mg tablets in a dose pack TAKE 6 TABLETS ON DAY 1 DIRECTED ON PACKAGE AND DECREASE BY 1 TAB EACH DAY FOR A TOTAL OF 6 DAYS 08/17 completed Not Available Not Available Not Available Vitamin D2 1,250 mcg (50,000 unit) capsule take 1 capsule by oral route every week 07/01 completed Prescrib modesta Mckeon e: Yes Loca tion: [facility] odify By: [email or web address] Kamran r DateTime : 06/04/19 10:45:00 AM Not Available Not Available Not Available amoxicill in 875 mg-potass ium clavulana te 125 mg tablet TAKE 1 TABLET BY MOUTH EVERY 12 HOURS FOR 7 DAYS 08/17 completed Not Available Not Available Not Available escitalop allison 10 mg tablet TAKE 1 TABLET BY MOUTH EVERY DAY active Not Available Not Available No t Available (21) 1.5 mg-30 mcg tablet TAKE 1 TABLET BY MOUTH EVERY DAY 08/29 completed Not Available Not Available Not Available (28) 1.5 mg-30 mcg (21)/75 mg (7) tablet TAKE 1 TABLET BY MOUTH EVERY DAY 08/17 completed Not Available Not Available Not Available nitrofura ntoin monohydra te/macroc rystals 100 mg capsule TAKE 1 CAPSULE BY MOUTH EVERY 12 HOURS 08/17 completed Not Available Not Available Not Available eszopiclo ne 3 mg tablet TAKE 1 TABLET BY MOUTH EVERYDAY AT BEDTIME active Not Available Not Available No t Available eszopiclo ne 2 mg tablet Take 1 tablet every day by oral route. 07/26 completed Not Available Not Available Not Available Betsy Allergy 08/17 completed Not Available Not Available Not Available Allergy Relief (cetirizi ne) 10 mg capsule Take 1 capsule every day by oral route. 07/01 completed Not Available Not Available Not Available Blisovi 24 Fe 1 mg-20 mcg (24)/75 mg (4) tablet TAKE 1 TABLET BY MOUTH EVERY DAY active Not Available Not Available No t Available Aurovela Fe 1-20 (28) 1 mg-20 mcg (21)/75 mg (7) tablet TAKE 1 TABLET BY MOUTH EVERY DAY 2024 active Not Available Not Available Not Avai lable Ubrelvy 100 mg tablet PLEASE SEE ATTACHED FOR DETAILED DIRECTIO NS active Not Available Not Available No t Available Vitals Date Recorded Body height Body mass index (BMI) Body weight Heart rate Systolic blood pressure Diastolic blood pressure Provider Name and Address Organization Details Last Updated DateTime 1 162.56 cm 24.4 kg/m2 30187.1 2 g 90 /min 130 mm[Hg] 82 mm[Hg] Amber [facility] 1 09:39:19 Date Recorded Body height Body mass index (BMI) Body weight Systolic blood pressure Diastolic blood pressure Provider Name and Address Organization Details Last Updated DateTime 07/26/2021 162.56 cm 29 kg/m2 25635.11 g 125 mm[Hg] 83 mm[Hg] [facility] 2 10:48:42 Date Recorded Body height Body mass index (BMI) Body weight Systolic blood pressure Diastolic blood pressure Provider Name and Address Organization Details Last Updated DateTime 09/18/2021 162.56 cm 28.7 kg/m2 54597.93 g 134 mm[Hg] 83 mm[Hg] [facility] 2 10:53:45 Date Recorded Body height Body mass index (BMI) Body weight Systolic blood pressure Diastolic blood pressure Provider Name and Address Organization Details Last Updated DateTime 08/17/2022 162.56 cm 29.7 kg/m2 12509.48 g 120 mm[Hg] 78 mm[Hg] Amber Clark [facility] 3 09:44:36 Date Recorded Body height Body mass index (BMI) Body weight Systolic blood pressure Diastolic blood pressure Provider Name and Address Organization Details Last Updated DateTime 08/30/2023 162.56 cm 29 kg/m2 09820.11 g 123 mm[Hg] 80 mm[Hg] Amber Clark [facility] 4 11:01:16 Social History Question Answer Notes LastModified by Organizat ion Details LastModified Time Tobacco Smoking Status Never Smoker Kishore Haines viet, [facility] 09/18/2021 10:03:05 Do You Have An Advance Directive? No [email or web address] Information not available 07/26/2021 What Is Your Level Of Alcohol Consumption? None [email or web address] Information not available 07/26/2021 If You Are , What Was Your Level Of Alcohol Consumption Prior To ? None [email or web address] Information not available 09/18/2021 Are You Blind Or Do You Have Difficulty Seeing? No [email or web address] Information not available 07/01/2020 What Is Your Level Of Caffeine Consumption? None [email or web address] Information not available 08/30/2023 In The 14 Days Before Symptom Onset, Have You Had Close Contact With A Laboratory-confir med COVID-19 While That Case Was Ill? No [email or web address] Information not available 07/01/2020 In The 14 Days Before Symptom Onset, Have You Had Close Contact With A Person Who Is Under Investigation For COVID-19 While That Person Was Ill? No [email or web address] Information not available 07/01/2020 Have You Been To An Area Known To Be High Risk For COVID-19? No [email or web address] Information not available 07/01/2020 Are You Deaf Or Do You Have Serious Difficulty Hearing? No [email or web address] Information not available 07/01/2020 What Type Of Diet Are You Following? REGULAR [email or web address] Information not available 07/01/2020 What Is The Highest Grade Or Level Of School You Have Completed Or The Highest Degree You Have Received? 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 No [email or web address] Information not available 07/26/2021 Have You Ever Been Counseled For Unhealthy Alcohol Use? No Information not available 09/18/2021 Do You Use Protection During Sex? No [email or web address] Information not available 07/26/2021 Do You Use Your Seat Belt Or Car Seat Routinely? Yes [email or web address] Information not available 07/01/2020 Do You Have Smoke And Carbon Monoxide Detectors In Your Home? Yes [email or web address] Information not available 07/01/2020 How Much Tobacco Do You Smoke? No [email or web address] Information not available 07/26/2021 Do You Feel Stressed (tense, Restless, Nervous, Or Anxious, Or Unable To Sleep At Night)? [id number] [email or web address] Information not available 07/26/2021 Do You Use Any Illicit Or Recreational Drugs? No [email or web address] Information not available 07/01/2020 Do You Use Sunscreen Routinely? Yes [email or web address] Information not available 07/01/2020 Has Tobacco Cessation Counseling Been Provided? No [email or web address] Information not available 09/18/2021 Have You Used IV Drugs? No [email or web address] Information not available 07/26/2021 Do You Or Have You Ever Used Any Other Forms Of Tobacco Or Nicotine? No [email or web address] Information not available 09/18/2021 Sex: Unknown Functional Status Question Answer Note LastModified by Organizat ion Details LastModified Time Do you have difficulty walking or climbing stairs? No Information not available 09/18/2021 Are you able to walk? YESWOREST [email or web address] Information not available 07/01/2020 Are you able to care for yourself? Yes [email or web address] Information not available 09/18/2021 Do you have difficulty dressing or bathing? No Information not available 09/18/2021 What is your exercise level? Occasional [email or web address] Information not available 07/01/2020 Mental Status None recorded. Family History Relationship Description Onset Age of this Age Resolved Age Notes LastModified by Organization Details LastModified Time Father Chronic obstructive pulmonary disease [email or web address] Not available 2023 10:46:55 Mother Hypertensive disorder [email or web address] Not available 08/17 09:44:50 Mother Hypertensive disorder [email or web address] Not available 2023 10:46:55 Unspecified Relation Attention deficit hyperactivit y disorder nephew [email or web address] Not available 08/29 10:46:55 Unspecified Relation Attention deficit hyperactivit y disorder niece Not available 08/29 10:46:55 Medical History Condition Response Allergies (Food, seasonal, environmental ) Y Other Y Breast Cancer N Drug/Latex Allergies/Reactions N Blood Transfusion N Dermatologic Disorders N Lung Disease N Defects or Inherited Disease N Breast Problem N Gestational Diabetes N Hematologic disorders N Anesthesia Complications N History of STI N Polycystic ovary syndrome N Anxiety Disorder Y Autoimmune disease N Arthritis N Infertility N Polyps N Acid Reflux (GERD) N History of abnormal pap N Cancer N Stroke N Varicosities N Neurologic/Epilepsy N Endometriosis N High Cholesterol N Headaches Y Fibromyalgia N Kidney Disease N Heart Problems N Kidney or Bladder Problems N Thyroid Problems N GI Problems N Eating Disorder N Anemia N Art (IVF or FET) N Psychiatric Illness N Ovarian Cancer N Pulmonary (TB, Asthma) N Hepatitis/Liver Disease N No Past Medical History N Eczema N Urinary Tract Infection N Abuse/Domestic Violence N Asthma N Trauma/Violence N Depression/ depression Y Heart Disease N Pre-Eclampsia N Hypertension N Osteoporosis N Thrombophilias N Gynecological History Statement/Question Response Abnormal Pap N Date of Last Mammogram Date of LMP 06/12/2019 On BCP's at Conception? N N STIs/STDs N HPV Vaccine N Current Control Method BCPs Age at First Child 24 Are cycles usually normal Y Most Recent Bone Density Sexually Active? N BCPs Date of Last Pap Smear 08/30/2023 Sexual Problems? N Desired Control Method LMP Approximate N Obstetrics History GPAL:G 1 P 1 0 0 1 Type Value Full Term 1 Living 1 Total 1 Past Encounters Encounter ID Performer Location Encounter Start Date Encounter Closed Date Diagnosis/Indication Diagnosis SNOMED-CT Code Diagnosis ICD10 Code Diagnosis Note [id number] Radha Barba CNM [facility] [address] [address] 06/10/2020 09:21:38 06/13/2020 18:23:21 [id number] Radha Barba [facility] [address],[place] [address] 07/01/2020 09:17:12 07/01/2020 10:33:11 Gynecologic examination 52181508 Z01.419 take one week off then restart, should resolve spotting [id number] Radha Barba [facility] [address],[place] [address] 07/26/2021 10:29:30 07/26/2021 12:26:00 Gynecologic examination [id number] Z01.419 take one week off then restart, should resolve spotting [id number] Amberkaylen Clark [facility] [address],[place] [address] 09/18/2021 10:02:57 09/18/2021 11:35:17 Vaginitis 29742922 N76.0 Urinary tr act infectious disease 13534244 N39.0 Urinary symptoms 5412775 08 R39.9 [id number] Radha Barba [place] [address],[place] [address] 08/17/2022 09:18:11 08/17/2022 10:18:26 Gynecologic examination 17181139 Z01.419 take one week off then restart, should resolve spotting [id number] Radha Barba [place] [address],[place] [address] 08/30/2023 10:46:27 08/30/2023 11:36:52 Vaginitis 71054931 N76.0 Gynecologi c examination 98424625 Z01.419 take one week off then restart, should resolve spotting Health Concerns Section Related Observation LastModified by Organization Detai ls LastModified Time None Recorded Concern Status LastModified by Organization Details LastModified Time None Recorded Advance Directives Directive N: Payers Encounter Date Sequence Insurance Name Policy Number Policy Malhotra Covered Member ID Malhotra Member ID Guarantor Name 07/01/2020 1 [facility] [id number] Annmarie Arrington [id number] Annmarie Arrington 07/26/2021 1 [employer] [id number] Annmarie Arrington [id number] Annmarie Arrington 09/18/2021 1 [employer] [id number] Annmarie Arrington [id number] Annmarie Arrington 08/17/2022 1 [facility] [id number] Annmarie Arrington [id number] Annmraie Arrington 08/30/2023 1 [facility] [id number] Annmarie Arrington [id number] Annmarie Arrington Notes Date Note Type Note Provider Name and Address Organization Details Recorded Time 07/01/2020 text/html Annual GYNReport ed bypatient.Breast:No breast pain; No breast lump; No nipple discharge Sexual complaints:No sexual complaints; No pain during intercourse; Normal libido Menopausal Symptoms:No menopausal symptoms; Normal vaginal lubrication Psychological symptoms:No depression; No anxiety; No PMDDNotes:does sbe, no tabocco or caffeine, exercises regularly, last 2 mo hx of spotting during pills, takes continuously Radha Barba CNM [address], [place], [address], [facility] 07/01/2020 10:30:13 07/26/2021 text/html Annual GYNReport ed bypatient.Breast:No breast pain; No breast lump; No nipple discharge Current Contraception:Satisf ied with current contraception; Oral contraceptives Sexual complaints:No sexual complaints; No pain during intercourse; Normal libido Menopausal Symptoms:No menopausal symptoms; Normal vaginal lubrication Psychological symptoms:No depression; No anxiety; No PMDD Preventive measures:Encourage self breast examination; Encourage regular exercise; Encourage no tobacco useNotes:non smoker, takes ocp continuously, doing well kids are in hs, turning 41 in SEPTEMBER Radha Barba CNM [address], [place], [address], [facility] 07/26/2021 11:26:35 08/17/2022 text/html Annual GYNReport ed bypatient.Menstrual cycle:Normal menses Urinary symptoms:No hematuria; No incontinence Vulva:No genital lesion Vagina:Normal vaginal discharge Breast:No breast pain; No breast lump; No nipple discharge Current Contraception:Satisf ied with current contraception; Oral contraceptives Sexual complaints:No sexual complaints; No pain during intercourse; Normal libido Menopausal Symptoms:No menopausal symptoms; Normal vaginal lubrication Psychological symptoms:No depression; No anxiety; No PMDD Preventive measures:Encourage self breast examination; Encourage regular exercise; Encourage no tobacco use; Encourage regular mammograms starting age 40Notes:doing well happy with bcm, pap up to date Radha Barba CNM [address], [place], [address], [facility] 08/17/2022 09:54:12 08/30/2023 text/html Annual GYNReport ed bypatient.History:no gynecologic complaints; no change in interval history Menstrual cycle:Normal menses Urinary symptoms:No hematuria; No incontinence Vulva:No genital lesion Vagina:Normal vaginal discharge Breast:No breast pain; No breast lump; No nipple discharge Sexual complaints:No sexual complaints; No pain during intercourse; Normal libido Menopausal Symptoms:No menopausal symptoms; Normal vaginal lubrication Psychological symptoms:No depression; No anxiety; No PMDD Preventive measures:Encourage self breast examination; Encourage regular exercise; Encourage no tobacco use; Encourage regular mammograms starting age 40; Mammogram performed within the past yearNotes:doing well takes ocp continuously, no spotting, thinks BV Radha Barba CNM [address], [place], [address], [facility] 08/30/2023 11:31:36 OBGyn Episode Ob Episode Information Episode Created Date Number of Fetuses Patient Bloodtype Patient rh Status Prepregnancy Weight lbs Domestic Partner Domestic Partner Phone Father Name Rehabilitation Program Coordinator Status 06/27/19 21 1 CLOSED Fetus Data First Name Last Name Admitted to NICU Weight (g) Sex Living Outcome Pediatric Complications Fetus ID Race Codes Race Delivery Type 2919.77 1704 M Full Term [id number] Primary Zack Calculation Initial Zack Date Initial Exam Date Initial Exam Provider Initial Ultrasound Date Last Menstrual Period Date Ultra Sound Weeks Gestation 0 Eighteen To Twenty Week Zack Update Ultra Sound Date Fundal Height At Umbil Quickening Date Ultra Sound Latest Weeks Gestation Final Zack Confirmed By Final Zack Confirmed Date Final Zack Date Ultra Sound Latest Days Gestation 0 0 Menstrual History Last Menstrual Date Menses Monthly On Bcp Conception Prior Menses Frequency Hcg Plus Date Menarche Onset Age Delivery Information Delivery Date Delivery Type Labor Anesthesia Weeks Gestation Incision Type Labor Labor Length Hrs Delivered By Post Complications Tubal Sterilization Discharge Date Comments 6 38 Discharge Information Feeding Method Contraceptive Method Maternal HG B and HCT Levels
[2024-08-24 21:44] VITALS: BP 125/76; PULSE 102; RESP 20; TEMP 37.3; O2SAT 99
--- NOTE | 2024-08-25 00:50 | ED.EXTPRO ---
HPI - Extremity Problem General Chief complaint: Extremity Problem,Nontraumatic Stated complaint: Redness/swelling right ankle-diff walking Time Seen by Provider: 08/25/24 00:38 Source: patient Mode of arrival: ambulatory Limitations: no limitations History of Present Illness HPI Narrative: This is a 43-year-old female who presents to the ED for chief complaint of right ankle redness and swelling beginning today. Patient states she was in the garden yesterday noticed 2 areas of redness that have been spreading over the course of the day. She reports significant pain to this area. Also reports swelling to the ankle. Denies injury. Denies calf pain or swelling. Denies fevers, chills, nausea, vomiting. Denies any immuno compromising condition. Related Data Home Medications ?Medication ?Instructions ?Recorded ?Confirmed ?Last Taken ?Type Zyrtec BYMOUTH 1XD 07/24/23 07/20/24 Unknown History norethindrone 1 mg-ethinyl 1 tablet PO DAILY 07/24/23 07/20/24 Unknown History estradiol 20 mcg (24)-iron 75 mg (4) tablet (Blisovi 24 Fe) cholecalciferol (vitamin D3) 25 25 mcg PO DAILY 07/20/24 07/20/24 Unknown History mcg (1,000 unit) capsule cyanocobalamin (vitamin B-12) 500 250 mcg PO DAILY 07/20/24 07/20/24 Unknown History mcg tablet (Vitamin B-12) Allergies Allergy/AdvReac Type Severity Reaction Status Date / Time shellfish derived Allergy Unknown Unknown Verified 08/24/24 21:28 Review of Systems Review of Systems: All systems as [facility] Past Medical History Medical History Abnormal EKG Allergies Anxiety Elevated cortisol level Heart palpitations Hypovitaminosis D Insomnia Migraine Psychophysiological insomnia Surgical History Surgical History H/O foot surgery History of Family History Family History Father Asthma Family history of chronic obstructive pulmonary disease Mother Family history of cardiovascular disease Hypertension Social History Social History Social History: Patient is very confident in filling out medical forms. Smoking status: Never smoker Alcohol intake: never Substance use: never Do You Feel Safe in your Home?: Yes Lack of Transportation: No Lack of Food: Never True Current Housing: I Have Housing Concerned About Future Housing: No Difficulty Paying Gas/Electric Bills: No Difficulty Paying for Meds: No Currently Unemployed: No Education: Bachelor's Degree Difficulty w/ Childcare or Family Care: No Living arrangements: with family Occupation/Education: occupation Additional occupation/education comments: [employer] Spiritual care concerns: No Agree to blood products: No Exam Narrative: GENERAL: Well-appearing, well-nourished, and in no acute distress. HEAD: Normocephalic, atraumatic. EYES: PERRLA and EOMI. ENT: Nares clear, no rhinorrhea or epistaxis. Mucous membranes moist. Oropharynx without tonsillar hypertrophy exudate or other lesions. NECK: Supple. No adenopathy or masses. CHEST: No respiratory distress. Clear to auscultation. No wheezes rales or rhonchi HEART: Regular rate and rhythm. No murmur heard. Normal peripheral pulses. ABDOMEN: Soft, nontender, nondistended, normal active bowel sounds. MSK: Normal range of motion. No edema. Right ankle swelling noted. Tenderness to the lateral right ankle. SKIN: 2 distinct areas of focal erythema and induration to the lateral right ankle. No fluctuance. NEURO: Alert and oriented x4. No focal deficits. PSYCH: Normal mood and affect. Course Vital Signs Vital signs: Vital Signs Temperature 99.2 F 08/24/24 21:44 Pulse Rate 102 H 08/24/24 21:44 Respiratory Rate 20 08/24/24 21:44 Blood Pressure 125/76 08/24/24 21:44 Pulse Oximetry 99 08/24/24 21:44 Oxygen Delivery Room Air 08/24/24 21:44 Temperature 99.2 F 08/24/24 21:44 Pulse Rate 102 H 08/24/24 21:44 Respiratory Rate 20 08/24/24 21:44 Blood Pressure 125/76 08/24/24 21:44 Pulse Oximetry 99 08/24/24 21:44 Oxygen Delivery Room Air 08/24/24 21:44 MDM - Extremity (Nontraumatic) MDM Narrative Medical decision making narrative: This is a 43-year-old female who presents to the ED for chief complaint of right lateral ankle pain, swelling and redness. Vitals show elevated heart rate over 102 and mildly elevated temperature of 99.2?. Exam remarkable for the above. There is no calf swelling or tenderness. Lab work showing elevated white count at 11.7. CRP slightly elevated at 1.6. Potassium slightly low at 3.3. Presentation consistent with cellulitis. Does not appear nec fasc or other deep space infection. She will be given Rx for cephalexin. Patient will be discharged in stable condition. Supportive measures discussed and return precautions given. Patient is understanding and agreeable with plan for discharge with PCP follow-up. Lab Data 08/25/24 00:55 08/25/24 00:55 Labs: Lab Results 08/25/24 Range/Units 00:55 WBC 11.7 H (4.5-10.0) K/mm3 RBC 4.50 (4.2-5.4) M/mm3 Hgb 13.8 (12.0-15.0) g/dL Hct 40.9 (37.0-47.0) % MCV 90.9 (80-100) fl MCH 30.7 (26-34) pg MCHC 33.7 (32-36) g/dl RDW 12.6 (11.5-14.5) % Plt Count 265 (150-375) k/mm3 MPV 10.3 (7.4-10.4) fl Immature Gran % (Auto) 0.5 (0-0.5) % Neut % (Auto) 68.4 (45.5-73.1) % Lymph % (Auto) 20.0 (18.3-44.2) % [place] % (Auto) 8.8 H (2.6-8.5) % Eos % (Auto) 1.6 (0-4.4) % Baso % (Auto) 0.7 (0.2-1.2) % Lymph # (Auto) 2.33 (0.9-3.2) K/mm3 [place] # (Auto) 1.0 H (0.1-0.6) K/mm3 Eos # (Auto) 0.2 (0-0.3) K/mm3 Baso # (Auto) 0.1 (0.0-0.1) K/mm3 Abs Immat Gran (auto) 0.06 H (0.00-0.031) K/mm3 Absolute Neuts (auto) 8.0 H (1.3-6.7) K/mm3 Absolute Nucleated RBC 0.000 (0.0-0.012) K/mm3 Nucleated RBC % 0.0 (0.0-0.2) % Sodium 137 (137-145) mmol/L Potassium 3.3 L (3.4-5.0) mmol/L Chloride 106 (98-107) mmol/L Carbon Dioxide 20 L (22-30) mmol/L Anion Gap 11 (4-12) mmol/L BUN 11 (7-17) mg/dL Creatinine 0.72 (0.7-1.0) mg/dL Estim Creat Clear Calc 91 ml/min Estimated GFR > 60 (59 - ) Glucose 109 (65-110) mg/dL Calcium 9.3 (8.4-10.2) mg/dL Total Bilirubin 0.6 (0.2-1.3) mg/dL AST 21 (14-36) U/L ALT 19 (6-35) U/L Alkaline Phosphatase 90 (38-126) U/L C-Reactive Protein 1.6 H (<1.0) mg/dL Total Protein 7.0 (6.3-8.2) g/dL Albumin 4.3 (3.5-5.1) g/dL Discharge Plan Discharge Clinical Impression: Cellulitis Patient Disposition: Home Condition: Stable Instructions: Antibiotic Form Additional Instructions: Your exam today shows evidence of cellulitis. Please take antibiotics as prescribed. Follow-up closely with PCP for recheck of this issue. If you have any new or worsening symptoms please return to the ER for further evaluation. Patient Language: Irish Prescriptions: New cephalexin 500 mg capsule 500 mg PO Q8H 7 Days Qty: 21 0RF No Action Zyrtec 10 mg BYMOUTH 1XD cholecalciferol (vitamin D3) 25 mcg (1,000 unit) capsule 25 mcg PO DAILY cyanocobalamin (vitamin B-12) [Vitamin B-12] 500 mcg tablet 250 mcg PO DAILY Blisovi 24 Fe 1 mg-20 mcg (24)/75 mg (4) tablet 1 tablet PO DAILY escitalopram oxalate 10 mg tablet 10 mg PO DAILY Qty: 90 1RF topiramate 25 mg tablet 25 mg PO BID Qty: 180 3RF rosuvastatin 5 mg tablet 5 mg PO DAILY Qty: 90 1RF eszopiclone 3 mg tablet 3 mg PO QHS Qty: 90 0RF Ubrelvy 100 mg tablet 100 mg PO ONCE Qty: 16 3RF Rx Instructions: as a single dose; may repeat once in >=2 hours after first dose if needed Follow-up/Referrals: Krysta Rush APRN [Primary Care Provider] - Time of Disposition: 00:53
[2024-08-25] MEDS: CEPHALEXIN 500 MG CAPSULE PO (01:01)
[2024-08-25] MEDS: ACETAMINOPHEN 500 MG TABLET PO (01:01)
[2024-08-25] MEDS: IBUPROFEN 600 MG TABLET PO (01:01)
[2024-08-25 01:42] LABS: Alanine Aminotransferase 19 U/L (6-35); Albumin Level 4.3 g/dL (3.5-5.1); Alkaline Phosphatase 90 U/L (38-126); Anion Gap 11 mmol/L (4-12); Aspartate Amino Transferase 21 U/L (14-36); Bilirubin,Total 0.6 mg/dL (0.2-1.3); Blood Urea Nitrogen 11 mg/dL (7-17); CRP 1.6 mg/dL (<1.0); Calcium 9.3 mg/dL (8.4-10.2); Carbon Dioxide 20 mmol/L (22-30); Chloride 106 mmol/L (98-107); Estimated CRCL calculation 91 ml/min; Estimated Glomerular Filt Rate > 60; Glucose 109 mg/dL (65-110); Potassium 3.3 mmol/L (3.4-5.0); Sodium 137 mmol/L (137-145)
--- OUTSIDE RECORDS SUMMARY | 2024-08-25 01:45 | XMS_ITS | Referral Summary ---
Author Organization [facility] Address [address] [place] [id number] Care Team Providers Care Hearing Dog Trainer Name Role Phone Krysta Rush PULPWOOD CUTTER Primary Care Provider + Encounters Date Type Department Care Team Description 07/13/2024 10:00 AM CDT Office Visit [facility] Sleep Medicine at [address] [place] [address] Millie Flynn MD SARAH (obstructive [...] Plan of Treatment Not on file Insurance [facility] CHOICE PLUS [facility] HMO/PPO Address: [facility] [address] [place] [address] Care Teams Hearing Dog Trainer Relationship Specialty Start Date End Date Krysta Rush NP PCP - General Nurse Practitioner 11/18/23
--- OUTSIDE RECORDS SUMMARY | 2024-08-25 01:45 | XMS_ITS | Clinical Summary ---
Author Organization [facility] Address [address] [place] [address] Care Team Providers Care Cdl Service Technician Name Role Phone Krysta Rush Maricel ASPHALT PATCHER Primary Care Provider + Allergies No known [...] Description 07/13/2024 10:00 AM CDT Office Visit [facility] Sleep Medicine at [address] [place] [address] Millie Flynn MD SARAH (obstructive [...] patient's age to complete this topic Insurance [facility] CHOICE PLUS Care Teams Cdl Service Technician Relationship Specialty Start Date End Date Krysta Rush NP PCP - General Nurse Practitioner 11/18/23
[2024-08-25 02:01] LABS: Basophils Absolute Auto 0.1 K/mm3 (0.0-0.1); Basophils Percent Auto 0.7 % (0.2-1.2); Eosinophils Absolute Auto 0.2 K/mm3 (0-0.3); Eosinophils Percent Auto 1.6 % (0-4.4); Hematocrit 40.9 % (37.0-47.0); Hemoglobin 13.8 g/dL (12.0-15.0); Immature Granulocyte Absolute 0.06 K/mm3 (0.00-0.031); Immature Granulocyte Percent A 0.5 % (0-0.5); Lymphocytes Absolute Auto 2.33 K/mm3 (0.9-3.2); Mean Corpuscular HGB Conc 33.7 g/dl (32-36); Mean Corpuscular Hemoglobin 30.7 pg (26-34); Mean Corpuscular Volume 90.9 fl (80-100); Mean Platelet Volume 10.3 fl (7.4-10.4); Monocytes Percent Auto 8.8 % (2.6-8.5); Neutrophils Percent Auto 68.4 % (45.5-73.1); Platelet Count Result 265 k/mm3 (150-375); Red Cell Distribution Width 12.6 % (11.5-14.5); White Blood Count 11.7 K/mm3 (4.5-10.0)
[2024-08-25 02:30] VITALS: BP 122/73; PULSE 95; RESP 16; O2SAT 99
== END 2024-08-25 02:40 | disposition home or self-care (01) ==
LOC: ANHED 08-25 01:43
PROVIDERS: Emergency Provider Physician Assistant; PCP Nurse Practitioner Family
DX: L03.115 Cellulitis of right lower limb (principal); F41.9 Anxiety disorder, unspecified; E55.9 Vitamin D deficiency, unspecified
CPT/HCPCS: 36415; 73610; 80053; 85025; 86140; 99283; A9270

== ENCOUNTER 2024-09-09 09:12 | Outpatient (CLI) | payer OTHER, SELFPAY ==
--- OUTSIDE RECORDS SUMMARY | 2024-09-09 09:46 | XMS_ITS | Referral Summary ---
Author Organization [facility] Address [address] [place] [id number] Care Team Providers Care Timber Management Professor Name Role Phone Krysta Rush EMPLOYEE TRAINING SPECIALIST Primary Care Provider + Encounters Date Type Department Care Team Description 07/13/2024 10:00 AM CDT Office Visit [facility] Sleep Medicine at [address] [place] [address] Millie Flynn MD SARAH (obstructive [...] Plan of Treatment Not on file Insurance [facility] CHOICE PLUS Care Teams Timber Management Professor Relationship Specialty Start Date End Date Krysta Rush NP PCP - General Nurse Practitioner 11/18/23
--- OUTSIDE RECORDS SUMMARY | 2024-09-09 09:46 | XMS_ITS | Data Portability ---
Author Organization [facility] [place] Address [address] [place] [address] Assessment Encounter Date Assessment Date Assessment LastModified [...] this patient s visit, including available hand tight barrel inspector upon arrive, temperature check and being asked a series of screening questions. All staff wore face coverings during this encounter, as well as provided additional cleaning and sanitizing of all surfaces, including countertops, pens, chairs, door handles, light switches, etc, prior to and following the patient s visit. [email or web address] Not available 07/01/2020 10:29:36 07/26/2021 07/26/2021 Annual [...] have any questions please call or email. [email or web address] Not available 07/26/2021 11:24:23 08/17/2022 08/17/2022 Annual [...] a year unless there are new symptoms. Not available 08/30/2023 11:00:47 Plan of Treatment Reminders Order Date Submit Date Provider Last Modified By Organization Details Last Modified Time Details Appointments [facility] 2024 08:45A M JR PINTO NP Not available Not available Not available Lab urinalysi s, dipstick 2021 022 [place] [facility] [place] [address], [place], [address], 09/18/2021 11:30:03 Referral None recorded. Procedures None recorded. Surgeries None recorded. Imaging None recorded. Medication Orders Flagyl 500 mg tablet 2023 024 [facility][id number], [address] [place], [address], 08/30/2023 11:25:58 Blisovi Fe 1/20 (28) 1 mg-20 mcg (21)/75 mg (7) tablet 2023 024 [facility] #2510, [address] [place], [address], 08/30/2023 11:31:29 Connie 24 Fe 1 mg-20 mcg (24)/75 mg (4) tablet 2022 023 [facility] #2510, [address] [facility], [place], [address], 08/17/2022 09:53:57 Macrobid 100 mg capsule [address] [id number], [address] [facility], [place], [id number], 08/17/2022 09:45:22 Diflucan 150 mg tablet [address] [facility]63078, [address] [facility], [place], [place], [id number], 08/17/2022 09:45:03 Aurovela 1.5/30 (21) 1.5 mg-30 mcg tablet [address] [facility]60284, [address] [facility], [place], [place], [id number], 08/30/2023 11:01:45 Aurovela Fe 1.5/30 (28) 1.5 mg-30 mcg (21)/75 mg (7) tablet [address] [facility]42008, [address] [facility], [place], [place], [id number], 08/17/2022 09:45:12 Patient TargetsNo targets recorded. Patient InstructionsNo instructions recorded. Reason for Referral None Reported. Results Created Date Observation Date Name Description Value Unit Range Abnormal Flag Note LastModifiedBy Organization Detail LastModifiedTime 09/19/1909/18/2021 VAGIN ITIS/ VAGIN OSIS, DNA PROBE luna sp. detection, direct probe Positi ve negati ve abnormal Not Available [facility] (Lab) [address] [facility], [place], [address], 09/19/2021 21:29:43 09/19/19 22 09/18/2021 VAGIN ITIS/ VAGIN OSIS, DNA PROBE gardnerella vag. detection, direct probe Positi ve negati ve abnormal Not Available [facility] (Lab) [address] [place], [address], 09/19/2021 21:29:43 09/19/19 22 09/18/2021 VAGIN ITIS/ VAGIN OSIS, DNA PROBE trichomonas vag. detection, direct probe Negati ve negati ve Not Available [facility] (Lab) [address] [facility], [place], [address], 09/19/2021 21:29:43 09/19/19 22 09/18/2021 CULTU RE: URINE result report SEE RESULT S BELOW Test: Cultu re: Urine Speci men Sourc e: Urine Voide d Speci men Type: Urine Speci men Date: 2021 4:35 PM Resul t Date: 2021 10:09 PM Resul t Statu s: Final resul t Abnor mal: No Resul ting Lab: [facility] [address] [facility] [address] Tel: CULTU RE ----- ----- ----- --- No growt h in 1 day (dete ction level of 10,00 0 colon ies / ml.) Not Available [facility] (Lab) [address] [facility], [place], [address], 09/19/2021 23:12:27 09/19/19 22 09/18/2021 urina lysis , dipst ick Leukocytes +2 Not Available [facility] resendez [address], [place], [address], 09/18/2021 11:23:52 09/19/19 22 09/18/2021 urina lysis , dipst ick Nitrite NORMAL Not Available [place] [address], [place], [address], 09/18/2021 11:23:52 09/19/19 22 09/18/2021 urina lysis , dipst ick Urobilinogen NORMAL Not Available [facility] juan daniel [address], [place], [address], 09/18/2021 11:23:52 09/19/19 22 09/18/2021 urina lysis , dipst ick Protein TRACE Not Available [place] [address], [place], [address], 09/18/2021 11:23:52 09/19/19 22 09/18/2021 urina lysis , dipst ick pH 8 Not Available [place] [address], [place], [address], 09/18/2021 11:23:52 09/19/19 22 09/18/2021 urina lysis , dipst ick Specific [place] 1.005 Not Available [facility]son [address], [place], [address], 09/18/2021 11:23:52 09/19/19 22 09/18/2021 urina lysis , dipst ick Ketone NORMAL Not Available [place] [address], [place], [address], 09/18/2021 11:23:52 09/19/19 22 09/18/2021 urina lysis , dipst ick Bilirubin NORMAL Not Available [facility] hand [address], [place], [address], 09/18/2021 11:23:52 09/19/19 22 09/18/2021 urina lysis , dipst ick Glucose NORMAL Not Available [place] [address], [place], [address], 09/18/2021 11:23:52 09/19/19 22 09/18/2021 urina lysis , dipst ick Appearance NORMAL Not Available Lavelle resendez [address], [place], [address], 09/18/2021 11:23:52 09/19/19 22 09/18/2021 urina lysis , dipst ick Color NORMAL Not Available [place] [address], [place], [address], 09/18/2021 11:23:52 08/30/19 24 08/30/2023 VAGIN ITIS/ VAGIN OSIS, DNA PROBE luna sp. detection, direct probe Negati ve negati ve Not Available [facility] (Lab) [address] [facility], [place], [address], 09/05/2023 20:58:20 08/30/19 24 08/30/2023 VAGIN ITIS/ VAGIN OSIS, DNA PROBE gardnerella vag. detection, direct probe Negati ve negati ve Not Available [facility] (Lab) [address] [facility], [place], [address], 09/05/2023 20:58:20 08/30/19 24 08/30/2023 VAGIN ITIS/ VAGIN OSIS, DNA PROBE trichomonas vag. detection, direct probe Negati ve negati ve Not Available [facility] (Lab) [address] [facility], [place], [address], 09/05/2023 20:58:20 08/30/19 24 08/30/2023 IMAGE GUIDE [...] Intra epith elial Lesio n or Cara acevedo (NIL) . Elect lewis horne d by Andreia Carvajal on 024 at 7:54 PM ----- [...] as clini andreina marti nted. Not Available [facility] (Lab) [address], [place], [address], 09/05/2023 20:58:20 01/31/20 22 01/30/2022 MAMMO , scree kate, bilat eral No observ ation record ed. [facility] [address], [place], [address], 01/30/2022 22:02:34 02/01/20 23 01/31/2023 MAMMO , scree kate, bilat eral No observ ation record ed. [facility] [address], [place], [address], 01/31/2023 19:14:49 01/31/20 24 01/31/2024 MAMMO , scree kate, digit al, bilat eral No observ ation record ed. [facility] [address], [place], [address], 01/31/2024 12:40:21 Result Notes None recorded. Problems Name Problem SNOMED Code Status Onset Date Resolution Date Notes Provider Name and Address Organization Details Recorded Time SNOMED CT Concept Completed 201907/01/2020 Encntr for strategy associate exam (general ) (routine ) w/o abn findings ;Practic e ID: [address] [facility], [place] - [facility] 09:40:22 Screenin g for malignan t neoplasm of cervix Completed 201407/01/2020 Pap Smear;Pr actice ID: 0001 Amber Clark viet, [facility] 09:40:[address] Concept Completed 201907/01/2020 Encntr for routine child health exam w/o abnormal findings ;Recorde d Elsewher e: No Locat ion: [facility] S ource: EHR Evs Attendant seda: N iLssethti ce ID: 0001 Jovanny lable Time: 02:45:00 PM Amber Clark viet [facility] 09:40:20 Pregnanc y test negative [id number] Completed 201407/01/2020 Pregnanc y examinat ion or test, negative result;R ecorded Elsewher e: No Locat ion: [facility] S ource: EHR Evs Attendant seda: N Practi ce ID: 0001 Jovanny lable Time: 11:00:00 AM Amber Clark viet [facility] 09:40:16 Menstrua tion finding Completed 201407/01/2020 Excessiv e or frequent menstrua tion;Rec orded Elsewher e: No Locat ion: [facility] S ource: EHR Evs Attendant seda: N Lissethti ce ID: 0001 Jovanny lable Time: 10:30:00 AM Amber llanos [facility] 09:40:14 Irregula r intermen strual bleeding 09963199 Completed 201407/01/2020 Metrorrh agia;Pra ctice ID: 0001 Amber Clark viet [facility] 09:40:12 Adult health examinat ion Completed 201407/01/2020 Routine general medical examinat ion at a health care facility ;Practic e ID: 0001 Amber llanos [facility] 09:40:08 Speciali zed medical examinat ion Completed 201407/01/2020 Routine gynecolo gical examinat ion;Prac reny ID: 0001 Amberkaylen Clark [facility] 1 09:40:24 Finding of general energy 367638773 Completed 201507/01/2020 Fatigue; Recorded Elsewher e: No [facility]at [facility] S ource: EHR Evs Attendant seda: N Practi ce ID: 0001 Jovanny lable Time: 03:15:00 PM Amber Clark [facility] 1 09:40:10 Migraine 54689816 Active 2023 Amber Clark [facility] 4 11:02:12 Mixed anxiety and depressi ve disorder 834344201 Active 2023 Amber Clark [facility] 4 11:02:27 Problem Notes None recorded. Procedures Surgical History Date Name Laterality Status Provider Name and Address Organization Details Recorded Time 4 Date of Last Pap Smear completed [facility] 08/30/2023 11:02:38 3 extraction of wisdom tooth completed [facility] 08/30/2023 11:03:29 1 excision of bunion completed [facility] 06/27/2020 17:12:53 0 extraction of wisdom tooth completed [facility] 08/30/2023 11:03:25 0 excision of bunion completed [facility] 06/27/2020 17:12:56 6 section completed [facility] 06/27/2020 17:12:18 Imaging Results Imaging Date Name Status [facility]Modified by [facility] Details LastModified Time 01/30/2022 MAMMO, screening, bilateral completed [facility] [address], [place], [address], 01/30/2022 22:02:34 01/31/2023 MAMMO, screening, bilateral completed [facility] [address], [place], [address], 01/31/2023 19:14:49 01/31/2024 MAMMO, screening, digital, bilateral completed [facility] [address], [place], [address], 01/31/2024 12:40:21 Procedure Notes None recorded. Medical [...] modesta Mckeon e: Yes Loca tion: [facility] Ozzie odify By: [email or web address] trick En counter DateTime : 11/17/19 15 10:30:00 AM Not Available Not Available Not Available prednison e 20 mg tablet TAKE 2 TABLETS BY MOUTH DAILY FOR 5 DAYS 07/26 completed Not Available Not Available Not Available topiramat e 25 mg tablet TAKE 1 TABLET BY MOUTH TWICE DAILY active Not Available Not Available No t [...] completed Not Available Not Available Not Available amoxicill in 500 mg tablet TAKE 1 TABLET BY MOUTH EVERY 12 HOURS active Not Available Not Available No t Available rizatript an 10 mg disintegr ating tablet 08/29 completed Not Available Not Available Not Available cephalexi n 500 mg capsule TAKE 1 CAPSULE BY MOUTH EVERY 8 HOURS FOR 7 DAYS active Not Available Not Available No t Available monteluka st 10 mg tablet TAKE 1 TABLET BY MOUTH EVERY DAY 08/29 completed Not Available Not Available Not Available methylpre dnisolone 4 mg tablets in a dose pack TAKE 6 TABLETS ON DAY 1 DIRECTED ON PACKAGE AND DECREASE BY 1 TAB EACH DAY FOR A TOTAL OF 6 DAYS active Not Available Not Available No t Available Vitamin D2 1,250 mcg (50,000 unit) capsule take 1 capsule by oral route every week 07/01 completed Prescrib ed [facility] e: Yes Loca tion: [facility] odify By: matthew barone DateTime : 06/04/19 10:45:00 AM Not Available [...] completed Not Available Not Available Not Available rosuvasta tin 5 mg tablet TAKE 1 TABLET BY MOUTH DAILY active Not Available Not Available No t Available (28) 1.5 mg-30 mcg (21)/75 mg (7) tablet TAKE 1 TABLET BY MOUTH EVERY DAY 08/17 completed Not Available Not Available Not Available nitrofura ntoin monohydra te/macroc rystals 100 mg capsule TAKE 1 CAPSULE BY MOUTH EVERY 12 HOURS 08/17 completed Not Available Not Available Not Available eszopiclo ne 3 mg tablet 3 MG ORALLY EVERY DAY AT BEDTIME active Not Available Not Available [...] No t Available Ubrelvy 100 mg tablet TAKE 1 TABLET BY MOUTH ONCE A SINGLE DOSE, MAY REPEAT ONCE IN 2 HOURS IF NEEDED active Not Available Not Available No t Available Vitals Date Recorded Body height Body mass index (BMI) Body weight Heart rate Systolic blood pressure Diastolic blood pressure Provider Name and Address Organization Details Last Updated DateTime 1 162.56 cm 24.4 kg/m2 12024.1 2 g 90 /min 130 mm[Hg] 82 mm[Hg] Amber Clark [facility] 1 09:39:19 Date Recorded Body height Body mass index (BMI) Body weight Systolic blood pressure Diastolic blood pressure Provider Name and Address Organization Details Last Updated DateTime 07/26/2021 162.56 cm 29 kg/m2 09905.11 g 125 mm[Hg] 83 mm[Hg] Amber Clark [facility] 2 10:48:42 Date Recorded Body height Body mass index (BMI) Body weight Systolic blood pressure Diastolic blood pressure Provider Name and Address Organization Details Last Updated DateTime 09/18/2021 162.56 cm 28.7 kg/m2 18148.93 g 134 mm[Hg] 83 mm[Hg] Amber Clark [facility] 2 10:53:45 Date Recorded Body height Body mass index (BMI) Body weight Systolic blood pressure Diastolic blood pressure Provider Name and Address Organization Details Last Updated DateTime 08/17/2022 162.56 cm 29.7 kg/m2 71897.48 g 120 mm[Hg] 78 mm[Hg] Amber Clark [facility] 3 09:44:36 Date Recorded Body height Body mass index (BMI) Body weight Systolic blood pressure Diastolic blood pressure Provider Name and Address Organization Details Last Updated DateTime 08/30/2023 162.56 cm 29 kg/m2 70999.11 g 123 mm[Hg] 80 mm[Hg] Amber Clark [facility] 4 11:01:16 Social History Question Answer Notes LastModified by Organizat ion Details LastModified Time Tobacco Smoking Status Never Smoker Kishore llanos, [facility] 09/18/2021 10:03:05 Do You Have An Advance Directive? No [email or web address] Information not available 07/26/2021 What Is Your Level Of Alcohol Consumption? None Information not available 07/26/2021 If You Are , What Was Your Level Of Alcohol Consumption Prior To ? None [email or web address] Information not available 09/18/2021 Are You Blind Or Do You Have Difficulty Seeing? No [email or web address] Information not available 07/01/2020 What Is Your Level Of Caffeine Consumption? None [email or web address] Information not available 08/30/2023 In The 14 Days Before Symptom Onset, Have You Had Close Contact With A Laboratory-confir med COVID-19 While That Case Was Ill? No [email or web address] Information not available 07/01/2020 In The 14 Days Before Symptom Onset, Have You Had Close Contact With A Person Who Is Under Investigation For COVID-19 While That Person Was Ill? No Information not available 07/01/2020 Have You Been To An Area Known To Be High Risk For COVID-19? No [email or web address] Information not available 07/01/2020 Are You Deaf Or Do You Have Serious Difficulty Hearing? No Information not available 07/01/2020 What Type Of Diet Are You Following? REGULAR [email or web address] Information not available 07/01/2020 What Is The Highest Grade Or Level Of School You Have Completed Or The Highest Degree You Have Received? 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 No [email or web address] Information not available 07/26/2021 Have You Ever Been Counseled For Unhealthy Alcohol Use? No [email or web address] Information not available 09/18/2021 Do You Use Protection During Sex? No [email or web address] Information not available 07/26/2021 Do You Use Your Seat Belt Or Car Seat Routinely? Yes [email or web address] Information not available 07/01/2020 Do You Have Smoke And Carbon Monoxide Detectors In Your Home? Yes [email or web address] Information not available 07/01/2020 How Much Tobacco Do You Smoke? No [email or web address] Information not available 07/26/2021 Do You Feel Stressed (tense, Restless, Nervous, Or Anxious, Or Unable To Sleep At Night)? [id number] [email or web address] Information not available 07/26/2021 Do You Use Any Illicit Or Recreational Drugs? No [email or web address] Information not available 07/01/2020 Do You Use Sunscreen Routinely? Yes [email or web address] Information not available 07/01/2020 Has Tobacco Cessation Counseling Been Provided? No [email or web address] Information not available 09/18/2021 Have You Used IV Drugs? No [email or web address] Information not available 07/26/2021 Do You Or Have You Ever Used Any Other Forms Of Tobacco Or Nicotine? No [email or web address] Information not available 09/18/2021 Sex: Unknown Functional Status Question Answer Note LastModified by Organizat ion Details LastModified Time Do you have difficulty walking or climbing stairs? No [email or web address] Information not available 09/18/2021 Are you able to walk? YESWOREST [email or web address] Information not available 07/01/2020 Are you able to care for yourself? Yes [email or web address] Information not available 09/18/2021 Do you have difficulty dressing or bathing? No [email or web address] Information not available 09/18/2021 What is your exercise level? Occasional [email or web address] Information not available 07/01/2020 Mental Status None recorded. Family History Relationship Description Onset Age of this Age Resolved Age Notes LastModified by Organization Details LastModified Time Father Chronic obstructive pulmonary disease [email or web address] Not available 2023 10:46:55 Mother Hypertensive disorder [email or web address] Not available 08/17 09:44:50 Mother Hypertensive disorder [email or web address] Not available 2023 10:46:55 Unspecified Relation Attention deficit hyperactivit y disorder nephew [email or web address] Not available 08/29 10:46:55 Unspecified Relation Attention deficit hyperactivit y disorder niece [email or web address] Not available 08/29 10:46:55 Medical History Condition Response Other Y Blood Transfusion N Dermatologic Disorders N Gestational Diabetes N Anxiety Disorder Y Autoimmune disease N Arthritis N Polyps N Infertility N Acid Reflux (GERD) N Cancer N Varicosities N Stroke N Neurologic/Epilepsy N Fibromyalgia N Headaches Y Kidney Disease N Heart Problems N Kidney or Bladder Problems N Eating Disorder N Art (IVF or FET) N Hepatitis/Liver Disease N No Past Medical History N Urinary Tract Infection N Asthma N Trauma/Violence N Thrombophilias N Allergies (Food, seasonal, environmental ) Y Breast Cancer N Drug/Latex Allergies/Reactions N Lung Disease N Defects or Inherited Disease N Breast Problem N Hematologic disorders N Anesthesia Complications N History of STI N Polycystic ovary syndrome N History of abnormal pap N Endometriosis N High Cholesterol N Thyroid Problems N GI Problems N Anemia N Psychiatric Illness N Ovarian Cancer N Pulmonary (TB, Asthma) N Eczema N Abuse/Domestic Violence N Depression/ depression Y Heart Disease N Pre-Eclampsia N Hypertension N Osteoporosis N Gynecological History Statement/Question Response Abnormal Pap [...] SNOMED-CT Code Diagnosis ICD10 Code Diagnosis Note [id number] Radha Barba [place] [address] [address] 06/10/2020 09:21:38 06/13/2020 18:23:21 [id number] [facility] [address] [address] 07/01/2020 09:17:12 07/01/2020 10:33:11 Gynecologic examination 47971128 Z01.419 take one week off then restart, should resolve spotting [id number] Radha Barba [facility] [address],[place] [address] 07/26/2021 10:29:30 07/26/2021 12:26:00 Gynecologic examination 14797090 Z01.419 take one week off then restart, should resolve spotting [id number] Maria Guadalupe Murray [place] [address],[place] [address] 09/18/2021 10:02:57 09/18/2021 11:35:17 Vaginitis 64012769 N76.0 Urinary tr act infectious disease 99486837 N39.0 Urinary symptoms 4027481 08 R39.9 [id number] Radha Barba [facility] [address],[place] [address] 08/17/2022 09:18:11 08/17/2022 10:18:26 Gynecologic examination 02731421 Z01.419 take one week off then restart, should resolve spotting [id number] Radha Barba [facility] [address],[place] [address] 08/30/2023 10:46:27 08/30/2023 11:36:52 Vaginitis 60105852 N76.0 Gynecologi c examination 38335627 Z01.419 take one week off then restart, should resolve spotting Health Concerns Section Related Observation LastModified by Organization Detai ls LastModified Time None Recorded Concern Status LastModified by Organization Details LastModified Time None Recorded Advance Directives Directive N: Payers Encounter Date Sequence Insurance Name Policy Number Policy Malhotra Covered Member ID Malhotra Member ID Guarantor Name 07/01/2020 1 [facility] [id number] Annmarie Arrington [id number] Annmarie Arrington 07/26/2021 1 [employer] [id number] Annmarie Arrington [id number] Annmarie Arrington 09/18/2021 1 [employer] [id number] Annmarie Arrington [id number] Annmarie Arrington 08/17/2022 1 [facility] [id number] Annmarie Arrington [id number] Annmarie Arrington 08/30/2023 1 [facility] [id number] Annmarie Arrington [id number] Annmarie Arrington Notes Date Note Type Note [...] continuously Radha Barba CNM [address], [place], [address], [facility] 07/01/2020 10:30:13 07/26/2021 text/html Annual [...] SEPTEMBER Radha Barba CNM [address], [place], [address], [facility] 07/26/2021 11:26:35 08/17/2022 text/html Annual [...] date Radha Barba CNM [address], [place], [address], [facility] 08/17/2022 09:54:12 08/30/2023 text/html Annual [...] BV Radha Barba CNM [address], [place], [address], [facility] 08/30/2023 11:31:36 OBGyn Episode Ob Episode Information Episode Created Date Number of Fetuses Patient Bloodtype Patient rh Status Prepregnancy Weight lbs Domestic Partner Domestic Partner Phone Father Name [employer] Dean Status 06/27/19 21 1 CLOSED Fetus Data [...]
--- OUTSIDE RECORDS SUMMARY | 2024-09-09 09:46 | XMS_ITS | Clinical Summary ---
Author Organization [facility] Address [address] [place] [address] Care Team Providers Care Iron Carrier Name Role Phone Krysta Rush Maricel [employer] Primary Care Provider + Allergies No known [...] Description 07/13/2024 10:00 AM CDT Office Visit [facility] Sleep Medicine at [address] [place] [address] Millie Flynn MD SARAH (obstructive [...] patient's age to complete this topic Insurance [facility] CHOICE PLUS Care Teams Iron Carrier Relationship Specialty Start Date End Date Krysta Rush NP PCP - General Nurse Practitioner 11/18/23
--- NOTE | 2024-09-09 11:30 | NEURO_ITS ---
Impression: # Complains of right hand pain and numbness. Non-diabetic. ? # Normal motor/sensory Nerve Conduction Study. ? # No Carpal Tunnel Syndrome or ulnar neuropathy. ? # Normal needle/EMG exam. ?Nerve Conduction Studies Anti Sensory Summary Table ?Stim Site NR Peak (ms) P-T Amp (?V) Site1 Site2 Delta-P (ms) Dist (cm) Phuc (m/s) Left Median Anti Sensory (2-3nd Digit) Wrist ? 2.6 76.2 Wrist 2-3nd Digit 2.6 14.0 54 Wrist ? 2.5 86.9 Wrist 2-3nd Digit 2.6 14.0 54 Right Median Anti Sensory (2-3nd Digit) Wrist ? 2.6 79.3 Wrist 2-3nd Digit 2.6 14.0 54 Wrist ? 2.5 72.2 Wrist 2-3nd Digit 2.6 14.0 54 Left Radial Anti Sensory (Base 1st Digit) Wrist ? 2.0 48.3 Wrist Base 1st Digit 2.0 0.0 Right Radial Anti Sensory (Base 1st Digit) Wrist ? 2.1 20.4 Wrist Base 1st Digit 2.1 0.0 Left Ulnar Anti Sensory (5th Digit) Wrist ? 2.5 88.3 Wrist 5th Digit 2.5 14.0 56 Right Ulnar Anti Sensory (5th Digit) Wrist ? 2.4 68.5 Wrist 5th Digit 2.4 14.0 58 Motor Summary Table ?Stim Site NR Onset (ms) O-P Amp (mV) Site1 Site2 Delta-0 (ms) Dist (cm) Phuc (m/s) Left Median Motor (Abd Poll Brev) Wrist ? 2.2 11.0 Elbow Wrist 4.9 28.0 57 Elbow ? 7.1 10.2 Right Median Motor (Abd Poll Brev) Wrist ? 2.3 11.8 Elbow Wrist 5.0 28.0 56 Elbow ? 7.3 9.8 Left Ulnar Motor (Abd Dig Minimi) Wrist ? 2.3 7.0 A Elbow Wrist 5.1 30.0 59 A Elbow ? 7.4 6.0 B Elbow Wrist 4.2 24.0 57 B Elbow ? 6.5 4.7 Right Ulnar Motor (Abd Dig Minimi) Wrist ? 2.3 8.0 A Elbow Wrist 5.5 30.0 55 A Elbow ? 7.8 5.4 B Elbow Wrist 3.8 21.0 55 B Elbow ? 6.1 5.9 F Wave Studies ?NR F-Lat (ms) L-R F-Lat (ms) Left Median (Mrkrs) (Abd Poll Brev) ? 25.69 1.19 Right Median (Mrkrs) (Abd Poll Brev) ? 24.51 1.19 Left Ulnar (Mrkrs) (Abd Dig Min) ? 26.55 0.07 Right Ulnar (Mrkrs) (Abd Dig Min) ? 26.48 0.07 EMG ?Side Muscle Nerve Root Ins Act Fibs Amp Dur Recrt Comment Right 1stDorInt Ulnar C8-T1 Nml Nml Nml Nml Nml Right Ext Indicis Radial (Post Int) C7-8 Nml Nml Nml Nml Nml Right Ext Digitorum Radial (Post Int) C7-8 Nml Nml Nml Nml Nml Right BrachioRad Radial C5-6 Nml Nml Nml Nml Nml Right PronatorTeres Median C6-7 Nml Nml Nml Nml Nml Right Abd Poll Brev Median C8-T1 Nml Nml Nml Nml Nml Right ABD Dig Min Ulnar C8-T1 Nml Nml Nml Nml Nml Right FlexPolLong Median (Ant Int) C7-8 Nml Nml Nml Nml Nml Right Abd Poll Long Radial (Post Int) C7-8 Nml Nml Nml Nml Nml Left 1stDorInt Ulnar C8-T1 Nml Nml Nml Nml Nml Left Ext Indicis Radial (Post Int) C7-8 Nml Nml Nml Nml Nml Left Ext Digitorum Radial (Post Int) C7-8 Nml Nml Nml Nml Nml Left BrachioRad Radial C5-6 Nml Nml Nml Nml Nml Left PronatorTeres Median C6-7 Nml Nml Nml Nml Nml Left Abd Poll Brev Median C8-T1 Nml Nml Nml Nml Nml Left ABD Dig Min Ulnar C8-T1 Nml Nml Nml Nml Nml Left FlexPolLong Median (Ant Int) C7-8 Nml Nml Nml Nml Nml Left Abd Poll Long Radial (Post Int) C7-8 Nml Nml Nml Nml Nml MTDD
== END 2024-09-09 09:13 | disposition home or self-care (01) ==
LOC: ANHNEURO 09:19
PROVIDERS: PCP Nurse Practitioner Family; Visit Provider Nurse Practitioner Family
DX: R20.2 Paresthesia of skin (principal); M79.601 Pain in right arm; M79.602 Pain in left arm
CPT/HCPCS: 95886; 95911

== ENCOUNTER 2025-02-01 13:37 | Outpatient (CLI) | payer OTHER, SELFPAY ==
--- NOTE | ~2025-02-01 | MM_ITS ---
EXAMINATION: MM screening carol BI w braxton HISTORY: Screening TECHNIQUE: Craniocaudal and mediolateral oblique 3-D tomosynthesis images were obtained and synthetic 2-D images were generated. CAD analysis was submitted and interpreted. COMPARISON: Comparison to multiple prior studies sequentially, with oldest reviewed study dated 01/30/2022. BREAST PARENCHYMAL COMPOSITION: Dense: The breasts are extremely dense, which lowers the sensitivity of mammography. FINDINGS: There is no evidence of suspicious mass, calcification, or architectural distortion to suggest malignancy in either breast. There has been no suspicious interval change. IMPRESSION: 1. No mammographic evidence of malignancy. 2. Recommend routine screening mammography in one year. BI-RADS Category 1: Negative Reviewed, dictated and finalized at location B.
== END 2025-02-01 13:38 | disposition home or self-care (01) ==
LOC: MICIMG 13:38
PROVIDERS: PCP Nurse Practitioner Family; Visit Provider Student in an Organized Health Care Education/Training Program
DX: Z12.31 Encounter for screening mammogram for malignant neoplasm of breast (principal)
CPT/HCPCS: 77063; 77067